=== PATIENT | female | born 1960 | race Caucasian/White ===

== ENCOUNTER 2020-05-21 09:12 | Inpatient (IN) | payer OTHER ==
--- NOTE | 2020-05-21 09:50 | ED ---
General Adult HPI - General Chief complaint: Abdominal Pain Stated complaint: abd pain Time Seen by Provider: 05/21/20 09:15 Source: patient, RN notes reviewed, old records reviewed Mode of arrival: ambulatory Limitations: no limitations - History of Present Illness Initial comments: This is a 59-year-old female who presents to the emergency department stating that yesterday morning she started having some lower abdominal pain mostly on the right and that pain is progress since that time. Patient continues to have lower abdominal pain. Patient denies any nausea vomiting. Patient denies any diarrhea. Patient denies any fever but states she did have chills. Patient states that she has had a cholecystectomy in the past. Patient denies any chest pain difficulty breathing shortness of breath. Patient denies any dysuria hematuria urinary frequency. Patient denies any urinary incontinence or retention. Patient denies any back pain. - Related Data Home Medications Medication Instructions Recorded Confirmed Estradiol 0.5 mg PO DAILY 05/21/20 05/21/20 Levothyroxine Sodium [Synthroid] 25 mcg PO DAILY 05/21/20 05/21/20 Allergies Allergy/AdvReac Type Severity Reaction Status Date / Time No Known Allergies Allergy Verified 05/21/20 10:52 Review of Systems ROS Statement: Those systems with pertinent positive or pertinent negative responses have been documented in the HPI. ROS Other: All systems not noted in ROS Statement are negative. Past Medical History Past Medical History: No Reported History History of Any Multi-Drug Resistant Organisms: None Reported Past Surgical History: Cholecystectomy, Hysterectomy Past Psychological History: No Psychological Hx Reported Smoking Status: Former smoker Past Alcohol Use History: Occasional Past Drug Use History: None Reported General Exam - General Exam Comments Initial Comments: GENERAL: Patient is well-developed and well-nourished. Patient is nontoxic and well- hydrated and is in mild distress. ENT: Neck is soft and supple. No significant lymphadenopathy is noted. Oropharynx is clear. Moist mucous membranes. Neck has full range of motion without eliciting any pain. EYES: The sclera were anicteric and conjunctiva were pink and moist. Extraocular movements were intact and pupils were equal round and reactive to light. Eyelids were unremarkable. PULMONARY: Unlabored respirations. Good breath sounds bilaterally. No audible rales rhonchi or wheezing was noted. CARDIOVASCULAR: There is a regular rate and rhythm without any murmurs gallops or rubs. ABDOMEN: Patient is right lower quadrant abdominal pain with rebound. SKIN: Skin is clear with no lesions or rashes and otherwise unremarkable. NEUROLOGIC: Patient is alert and oriented x3. Cranial nerves II through XII are grossly intact. Motor and sensory are also intact. Normal speech, volume and content. Symmetrical smile. MUSCULOSKELETAL: Normal extremities with adequate strength and full range of motion. LYMPHATICS: No significant lymphadenopathy is noted PSYCHIATRIC: Normal psychiatric evaluation. Limitations: no limitations Course Vital Signs 05/21/20 05/21/20 09:16 10:18 Temperature 98.1 F Pulse Rate 109 H 88 Respiratory 18 18 Rate Blood Pressure 113/79 127/88 O2 Sat by Pulse 99 97 Oximetry Medical Decision Making - Medical Decision Making CT of the abdomen and pelvis shows moderate to severe diverticulitis it's uncomplicated Patient did not feel comfortable going home so I admitted the patient wrote admitting orders. - Lab Data Result diagrams: 05/21/20 09:59 05/21/20 09:59 Lab Results 05/21/20 05/21/20 05/21/20 Range/Units 09:59 09:59 09:59 WBC 13.4 H (3.8-10.6) k/uL RBC 4.75 (3.80-5.40) m/uL Hgb 14.4 (11.4-16.0) gm/dL Hct 42.5 (34.0-46.0) % MCV 89.5 (80.0-100.0) fL MCH 30.4 (25.0-35.0) pg MCHC 34.0 (31.0-37.0) g/dL RDW 12.0 (11.5-15.5) % Plt Count 185 (150-450) k/uL Neutrophils % 82 % Lymphocytes % 10 % Monocytes % 7 % Eosinophils % 1 % Basophils % 0 % Neutrophils # 11.0 H (1.3-7.7) k/uL Lymphocytes # 1.3 (1.0-4.8) k/uL Monocytes # 0.9 (0-1.0) k/uL Eosinophils # 0.1 (0-0.7) k/uL Basophils # 0.1 (0-0.2) k/uL Sodium 138 (137-145) mmol/L Potassium 4.3 (3.5-5.1) mmol/L Chloride 105 (98-107) mmol/L Carbon Dioxide 27 (22-30) mmol/L Anion Gap 6 mmol/L BUN 15 (7-17) mg/dL Creatinine 0.92 (0.52-1.04) mg/dL Est GFR (CKD-EPI)AfAm 80 (>60 ml/min/1.73 sqM) Est GFR (CKD-EPI)NonAf 70 (>60 ml/min/1.73 sqM) Glucose 116 H (74-99) mg/dL Calcium 9.7 (8.4-10.2) mg/dL Total Bilirubin 0.9 (0.2-1.3) mg/dL AST 24 (14-36) U/L ALT 23 (4-34) U/L Alkaline Phosphatase 82 (38-126) U/L Total Protein 7.4 (6.3-8.2) g/dL Albumin 4.5 (3.5-5.0) g/dL Amylase 50 (30-110) U/L Lipase 202 (23-300) U/L Urine Color Light Yellow Urine Appearance Clear (Clear) Urine pH 5.5 (5.0-8.0) Ur Specific [place] 1.009 (1.001-1.035) Urine Protein Negative (Negative) Urine Glucose (UA) Negative (Negative) Urine Ketones Negative (Negative) Urine Blood Trace H (Negative) Urine Nitrite Negative (Negative) Urine Bilirubin Negative (Negative) Urine Urobilinogen <2.0 (<2.0) mg/dL Ur Leukocyte Esterase Negative (Negative) Urine RBC <1 (0-5) /hpf Urine WBC <1 (0-5) /hpf Ur Squamous Epith Cells 1 (0-4) /hpf Urine Bacteria Rare H (None) /hpf Urine Mucus Rare H (None) /hpf Disposition Clinical Impression: Acute diverticulitis Disposition: ADMITTED IP TO THIS HOSP Referrals: Dwayne Tijerina DO [Primary Care Provider] - 1-2 days Time of Disposition: 11:05
[2020-05-21 10:14] LABS: Basophils # (A) 0.1 k/uL (0-0.2); Basophils % (A) 0 %; Eosinophils # (A) 0.1 k/uL (0-0.7); Eosinophils % (A) 1 %; HCT 42.5 % (34.0-46.0); HGB 14.4 gm/dL (11.4-16.0); Lymphocytes # (A) 1.3 k/uL (1.0-4.8); Lymphocytes % (A) 10 %; MCH 30.4 pg (25.0-35.0); MCV 89.5 fL (80.0-100.0); Mean Platelet Volume 7.5; Monocytes # (A) 0.9 k/uL (0-1.0); Monocytes % (A) 7 %; Neutrophils % (A) 82 %; Platelet Count 185 k/uL (150-450); RBC 4.75 m/uL (3.80-5.40); WBC 13.4 k/uL (3.8-10.6)
[2020-05-21 10:18] LABS: Appearance,Urine Clear (Clear); Bacteria,Urine Rare /hpf; Bilirubin,Urine Negative (Negative); Blood,Urine Trace (Negative); Color,Urine Light Yellow; Glucose,Urine (UA) Negative (Negative); Ketones,Urine Negative (Negative); Leukocyte Esterase,Urine Negative (Negative); Mucus,Urine Rare /hpf; Nitrite,Urine Negative (Negative); PH, Urine 5.5 (5.0-8.0); Protein,Urine Negative (Negative); RBC,Urine <1 /hpf (0-5); Specific Gravity,Urine 1.009 (1.001-1.035); Squamous Epithelial Cell,Urine 1 /hpf (0-4); Urobilinogen,Urine <2.0 mg/dL (<2.0); WBC,Urine <1 /hpf (0-5)
[2020-05-21 10:37] LABS: Albumin 4.5 g/dL (3.5-5.0); Calcium 9.7 mg/dL (8.4-10.2); Potassium 4.3 mmol/L (3.5-5.1); Total Bilirubin 0.9 mg/dL (0.2-1.3); Total Protein 7.4 g/dL (6.3-8.2)
[2020-05-21] MEDS ORDERED: HYDROmorphone 0.5 MG/0.5 ML SYRINGE IVP STA (10:47)
--- NOTE | 2020-05-21 10:57 | CT ---
EXAMINATION TYPE: CT abdomen pelvis w con DATE OF EXAM: 05/21/2020 HISTORY: Abd and pelvic pain for 2 days, possible appendicitis. CT DLP: 697.4mGycm Automated Exposure Control for Dose Reduction was Utilized. CONTRAST: CT scan of the abdomen and pelvis is performed without oral but with IV Contrast, patient injected wi th 100 mL of Isovue 300. COMPARISON: None. FINDINGS: LUNG BASES: Dependent atelectasis in both bases. Small to tiny pericardial effusion anteriorly. LIVER/GB: Cholecystectomy clips noted. PANCREAS: No significant abnormality is seen. SPLEEN: No significant abnormality is seen. ADRENALS: No significant abnormality is seen. KIDNEYS: Symmetric cortical medullary uptake and excretion without concerning renal mass or hydroneph rosis seen bilaterally. Bladder within normal limits. BOWEL: Small sized hiatal hernia. Slightly suboptimal evaluation bowel without enteric contrast. No s uspicious small and large bowel dilatation. Slightly low-lying fluid and fecal filled cecum into the right pelvis. Normal-appearing appendix noted from cecum seen best on coronal images. There are diver ticula in the left and sigmoid colon. There is moderate to severe wall thickening centered mid sigmoi d colon left pelvis with irregular mucosal enhancement and moderate to severe ill-defined fluid and f at stranding. Findings consistent with acute diverticulitis. Trace free fluid in pelvis axial image 6 8 is noted. No well-formed fluid collection is seen. No pneumoperitoneum is present. UTERUS/ADNEXA: Uterus surgically absent markedly atrophic LYMPH NODES: No greater than 1cm abdominal or pelvic lymph nodes are appreciated. OSSEOUS STRUCTURES: No significant abnormality is seen. OTHER: No significant additional abnormality is seen. IMPRESSION: A fairly moderate to severe uncomplicated acute diverticulitis centered midsigmoid colon in the left pelvis as detailed above.
[2020-05-21] MEDS ORDERED: AMPICILLIN-SULBACTAM 3 GM in SODIUM CHLORIDE 0.9% 100 ML IVPB STA (11:00)
[2020-05-21] MEDS ORDERED: SODIUM CHLORIDE 0.9% 1,000 ML IV ONE (11:05)
[2020-05-21] MEDS ORDERED: HYDROmorphone 0.5 MG/0.5 ML SYRINGE IVP PRN (11:06)
[2020-05-21] MEDS ORDERED: TEMAZEPAM 15 MG CAP PO PRN (12:22)
[2020-05-21] MEDS: LEVOTHYROXINE 25 MCG TAB PO SCH (13:11)
[2020-05-21] MEDS: HYDROcodone/APAP 5-325MG 1 EACH TAB PO PRN ×2 (13:11→20:55)
[2020-05-21] MEDS: PANTOPRAZOLE 40 MG/10 ML VIAL IVP SCH (13:12)
[2020-05-21] MEDS: HEPARIN SODIUM,PORCINE 5,000 UNIT/ML 1 ML VIAL SQ SCH ×2 (13:14→20:54)
[2020-05-21] MEDS: SODIUM CHLORIDE 0.9% 1,000 ML IV SCH (13:14)
[2020-05-21] MEDS: PIPERACILLIN-TAZOBACTAM 3.375 GM in SODIUM CHLORIDE 0.9% 100 ML IVPB SCH ×2 (13:15→20:55)
--- NOTE | 2020-05-21 14:16 | P.GSCN ---
History of Present Illness Consult date: 05/21/20 History of present illness: CHIEF COMPLAINT: Abdominal pain HISTORY OF PRESENT ILLNESS: This is a 59-year-old female with a known past medical history of diverticulitis, irritable bowel syndrome, cholecystectomy and hysterectomy. She reports her last episode of diverticulitis was in 2014 which required hospitalization. She presents to the emergency room with complaints of lower mid and left lower quadrant abdominal pain. She reports that the pain started yesterday. She reports it as a sharp pain rating is on a scale of 10 out of 10. She reports having regular bowel movements. She denies any nausea or vomiting, fever, chills or sweats. She's been admitted to the hospital for diverticulitis. PAST MEDICAL HISTORY: See list. PAST SURGICAL HISTORY: See list. MEDICATIONS: See list. ALLERGIES: See list. SOCIAL HISTORY: No illicit drug use. REVIEW OF SYSTEMS: CONSTITUTIONAL: Denies fever or chills. HEENT: Denies blurred vision, vision changes, or eye pain. Denies hemoptysis CARDIOVASCULAR: Denies chest pain or pressure. RESPIRATORY: No shortness of breath. GASTROINTESTINAL: See HPI for pertinent findings HEMATOLOGIC: Denies bleeding disorders. GENITOURINARY: Denies any blood in urine or increased urinary frequency. SKIN: Denies pruitis. Denies rash. PHYSICAL EXAM: VITAL SIGNS: Reviewed. Afebrile GENERAL: Well-developed in no acute distress. HEENT: No sclera icterus. Extraocular movements grossly intact. Moist buccal mucosa. Head is atraumatic, normocephalic. No nasal drainage. ABDOMEN: Soft. Mildly distended. Left lower quadrant tenderness and lower mid abdomen tenderness with palpation NEUROLOGIC: Alert and oriented. Cranial nerves II through XII grossly intact. LABORATORY DATA: WBC 13.4 hemoglobin 14.4 platelets 185 LFTs normal lipase 202 IMAGING: CT scan of abdomen and pelvis fairly moderate to severe uncomplicated acute diverticulitis centered mid sigmoid colon in the left pelvis ASSESSMENT: 1. Acute diverticulitis of the sigmoid colon 2. Prior history of diverticulitis 3. Irritable bowel syndrome PLAN: -Keep patient nothing by mouth -Continue IV Zosyn -Continue IV fluids -Continue pain medications as needed -Add simethicone drops for gas pain -Recommend colonoscopy outpatient in a few weeks Thank you for this consultation. Physician Plastic Sewer note has been reviewed by physician. Signing provider agrees with the documented findings, assessment, and plan of care. Past Medical History Past Medical History: No Reported History Additional Past Medical History / Comment(s): diverticulitis 2015 admission jennifer maldonado History of Any Multi-Drug Resistant Organisms: None Reported Past Surgical History: Cholecystectomy, Hysterectomy Past Anesthesia/Blood Transfusion Reactions: No Reported Reaction Past Psychological History: No Psychological Hx Reported Smoking Status: Former smoker Past Alcohol Use History: Occasional Past Drug Use History: None Reported - Past Family History Mother History Unknown: Yes Additional Family Medical History / Comment(s): grandmother but not immediate family members Medications and Allergies Home Medications Medication Instructions Recorded Confirmed Type Estradiol 0.5 mg PO DAILY 05/21/20 05/21/20 History Levothyroxine Sodium [Synthroid] 25 mcg PO DAILY 05/21/20 05/21/20 History Allergies Allergy/AdvReac Type Severity Reaction Status Date / Time No Known Allergies Allergy Verified 05/21/20 10:52 Surgical - Exam Vital Signs Temp Pulse Resp BP Pulse Ox 98.1 F 109 H 18 113/79 99 05/21/20 09:16 05/21/20 09:16 05/21/20 09:16 05/21/20 09:16 05/21/20 09:16 Results - Labs 05/21/20 09:59 05/21/20 09:59 Abnormal Lab Results - Last 24 Hours (Table) 05/21/20 05/21/20 05/21/20 Range/Units 09:59 09:59 09:59 WBC 13.4 H (3.8-10.6) k/uL Neutrophils # 11.0 H (1.3-7.7) k/uL Glucose 116 H (74-99) mg/dL Urine Blood Trace H (Negative) Urine Bacteria Rare H (None) /hpf Urine Mucus Rare H (None) /hpf Diabetes panel 05/21/20 Range/Units 09:59 Sodium 138 (137-145) mmol/L Potassium 4.3 (3.5-5.1) mmol/L Chloride 105 (98-107) mmol/L Carbon Dioxide 27 (22-30) mmol/L BUN 15 (7-17) mg/dL Creatinine 0.92 (0.52-1.04) mg/dL Glucose 116 H (74-99) mg/dL Calcium 9.7 (8.4-10.2) mg/dL AST 24 (14-36) U/L ALT 23 (4-34) U/L Alkaline Phosphatase 82 (38-126) U/L Total Protein 7.4 (6.3-8.2) g/dL Albumin 4.5 (3.5-5.0) g/dL Calcium panel 05/21/20 Range/Units 09:59 Calcium 9.7 (8.4-10.2) mg/dL Albumin 4.5 (3.5-5.0) g/dL Pituitary panel 05/21/20 Range/Units 09:59 Sodium 138 (137-145) mmol/L Potassium 4.3 (3.5-5.1) mmol/L Chloride 105 (98-107) mmol/L Carbon Dioxide 27 (22-30) mmol/L BUN 15 (7-17) mg/dL Creatinine 0.92 (0.52-1.04) mg/dL Glucose 116 H (74-99) mg/dL Calcium 9.7 (8.4-10.2) mg/dL Adrenal panel 05/21/20 Range/Units 09:59 Sodium 138 (137-145) mmol/L Potassium 4.3 (3.5-5.1) mmol/L Chloride 105 (98-107) mmol/L Carbon Dioxide 27 (22-30) mmol/L BUN 15 (7-17) mg/dL Creatinine 0.92 (0.52-1.04) mg/dL Glucose 116 H (74-99) mg/dL Calcium 9.7 (8.4-10.2) mg/dL Total Bilirubin 0.9 (0.2-1.3) mg/dL AST 24 (14-36) U/L ALT 23 (4-34) U/L Alkaline Phosphatase 82 (38-126) U/L Total Protein 7.4 (6.3-8.2) g/dL Albumin 4.5 (3.5-5.0) g/dL
--- NOTE | 2020-05-21 14:41 | HP ---
HISTORY AND PHYSICAL CHIEF COMPLAINT: Abdominal pain. HISTORY OF PRESENT ILLNESS: This is a 59-year-old woman with a past medical history of previous diverticulitis in 2015, admitted to [facility] and cholecystomy history. Has recently moved to the area. The patient was followed by Dr. Tijerina in [facility]. The patient had an episode of abdominal pain which is few months ago. Patient improved significantly. Currently, the patient complaining of abdominal pain which started yesterday which felt in the lower part, mainly on the left and the patient diarrhea during the previous admission but currently there is no nausea, diarrhea, constipation, but pain is severe. Patient came to [facility] and CT scan of the abdomen showed fairly moderate severe uncomplicated acute diverticulitis centered in the mid sigmoid colon. The patient admitted for further evaluation and treatment. Broad-spectrum IV antibiotics initiated. There is no history of fever, rigors. No history of headache, loss of consciousness, seizures at this time. PAST MEDICAL HISTORY: Previous diverticulitis, cholecystectomy, hysterectomy. MEDICATIONS PRIOR TO ADMISSION: Include Synthroid 25 mcg p.o. daily, estradiol 0.5 mg daily. ALLERGIES: None. FAMILY HISTORY: No history of heart disease or strokes in the family. SOCIAL HISTORY: History of smoking. Occasional alcohol intake. REVIEW OF SYSTEMS: ENT: No diminished vision. CARDIOVASCULAR: No angina. RESPIRATION: No cough. GI: As mentioned earlier. : No dysuria. NERVOUS SYSTEM: No numbness or weakness. ALLERGY/IMMUNOLOGY: No asthma, hay fever. MUSCULOSKELETAL: As mentioned earlier. HEMATOLOGY: No history of anemia. ENDOCRINE: Hypothyroidism. CONSTITUTIONAL: As mentioned earlier. DERMATOLOGY: Negative. RHEUMATOLOGY: Negative. PSYCHIATRY: As mentioned earlier. PHYSICAL EXAMINATION: Alert and oriented x3. Pulse 88, blood pressure 127/80, respiration 18, temperature 98.1, pulse ox 97% on room air. HEENT: Conjunctivae normal. NECK: No jugular venous distension. CARDIOVASCULAR SYSTEM: S1, S2, muffled. RESPIRATION: Breath sounds diminished at the bases, no rhonchi, no crackles. ABDOMEN: Soft, mild diffuse distention, mild diffuse tenderness in the lower part of the abdomen. Otherwise, no guarding, no rigidity, no rebound tenderness. Bowel sounds diminished. No ascites. No mass palpable. LEGS: No edema, no swelling. NERVOUS SYSTEM: Higher functions as mentioned earlier. Moves all 4 limbs. No focal motor or sensory deficit. LYMPHATICS: No lymph node enlargement in neck or axillae. SKIN: No ulcer, rash, bleeding. JOINTS: No active deforming arthropathy. LABS: WBC 13.2, hemoglobin 14.4, glucose 116. UA noted. ASSESSMENT: 1. Acute abdominal pain with acute diverticulitis involving the mid sigmoid colon on the left pelvis. 2. History of previous diverticulitis. 3. Increased random blood sugar. 4. Increased WBC. 5. History of cholecystectomy. 6. History of hysterectomy. 7. Remote history of nicotine dependence. RECOMMENDATION: In this 59-year-old woman who presented with multiple complex medical issues, will monitor the patient closely. Continue with the current management and symptomatic treatment. Will initiate broad-spectrum IV antibiotics, symptomatic treatment. DVT prophylaxis. Proton pump inhibitor. Surgical consultation. The prognosis guarded because of multiple complex medical issues. Discussed with the patient and family, understands. Further recommendations to follow. MMODL / IJN: [id number] /
[2020-05-21] MEDS: SIMETHICONE 40 MG/0.6 ML DROPS 2,000 MG/30 ML BOTTLE PO SCH ×2 (14:51→21:15)
[2020-05-21] MEDS: HYDROmorphone 0.5 MG/0.5 ML SYRINGE IVP PRN ×3 (14:54→21:01)
[2020-05-21] MEDS ORDERED: AMPICILLIN-SULBACTAM 3 GM in SODIUM CHLORIDE 0.9% 100 ML IVPB SCH (17:00)
[2020-05-21] MEDS: ALPRAZolam 0.25 MG TAB PO PRN (22:27)
[2020-05-22] MEDS: HYDROcodone/APAP 5-325MG 1 EACH TAB PO PRN ×3 (03:38→15:12)
[2020-05-22] MEDS: HYDROmorphone 0.5 MG/0.5 ML SYRINGE IVP PRN ×5 (03:38→20:29)
[2020-05-22] MEDS: PIPERACILLIN-TAZOBACTAM 3.375 GM in SODIUM CHLORIDE 0.9% 100 ML IVPB SCH ×3 (03:39→20:22)
[2020-05-22] MEDS: SODIUM CHLORIDE 0.9% 1,000 ML IV SCH ×2 (03:39→11:56)
[2020-05-22] MEDS: LEVOTHYROXINE 25 MCG TAB PO SCH (06:49)
[2020-05-22 08:03] LABS: Basophils % (A) 0 %; Eosinophils # (A) 0.1 k/uL (0-0.7); Eosinophils % (A) 1 %; HCT 39.2 % (34.0-46.0); HGB 12.3 gm/dL (11.4-16.0); Lymphocytes # (A) 1.6 k/uL (1.0-4.8); Lymphocytes % (A) 16 %; MCH 29.1 pg (25.0-35.0); MCHC 31.4 g/dL (31.0-37.0); MCV 92.6 fL (80.0-100.0); Mean Platelet Volume 7.8; Monocytes # (A) 0.5 k/uL (0-1.0); Monocytes % (A) 5 %; Neutrophils # (A) 7.5 k/uL (1.3-7.7); Neutrophils % (A) 76 %; Platelet Count 160 k/uL (150-450); RBC 4.23 m/uL (3.80-5.40); RDW 12.1 % (11.5-15.5)
[2020-05-22 08:11] LABS: Calcium 8.3 mg/dL (8.4-10.2); Potassium 3.7 mmol/L (3.5-5.1)
[2020-05-22] MEDS: HEPARIN SODIUM,PORCINE 5,000 UNIT/ML 1 ML VIAL SQ SCH ×2 (08:14→20:23)
[2020-05-22] MEDS: SIMETHICONE 40 MG/0.6 ML DROPS 2,000 MG/30 ML BOTTLE PO SCH ×4 (08:18→21:09)
[2020-05-22] MEDS: PANTOPRAZOLE 40 MG/10 ML VIAL IVP SCH (08:23)
--- NOTE | 2020-05-22 11:44 | P.PN ---
Subjective Progress Note Date: 05/22/20 CHIEF COMPLAINT: Abdominal pain HISTORY OF PRESENT ILLNESS: Patient being followed for acute diverticulitis. Patient still reporting abdominal pain. She rates it a 5 out of 10. She had some nausea this morning with ice chips. She is passing gas. Denies any bowel movement. White count has normalized at 10. She is currently nothing by mouth. She is requiring the Dilaudid and [place] for pain control. PHYSICAL EXAM: VITAL SIGNS: Reviewed. GENERAL: Well-developed in no acute distress. HEENT: No sclera icterus. Extraocular movements grossly intact. Moist buccal mucosa. Head is atraumatic, normocephalic. ABDOMEN: Soft. Mildly distended. Tenderness left lower quadrant and left lower mid abdomen NEUROLOGIC: Alert and oriented. Cranial nerves II through XII grossly intact. ASSESSMENT: 1. Acute diverticulitis of the sigmoid colon 2. Prior history of diverticulitis 3. Irritable bowel syndrome PLAN: -Keep patient nothing by mouth -Continue IV Zosyn -Continue IV fluids -Continue pain medications as needed -Recommend colonoscopy outpatient in a few weeks after acute infection has resolved Physician Chlorobutadiene Scrubber Operator note has been reviewed by physician. Signing provider agrees with the documented findings, assessment, and plan of care. Objective - Vital Signs Vital signs: Vital Signs Temp 97.4 F L 05/22/20 08:06 Pulse 80 05/22/20 08:06 Resp 16 05/22/20 08:06 BP 114/67 05/22/20 08:06 Pulse Ox 95 05/22/20 08:06 Intake & Output 05/21/20 05/22/20 05/22/20 18:59 06:59 18:59 Intake Total 20 Output Total 600 Balance -600 20 Weight 64.6 kg Intake: Oral 20 Output: Urine 600 Other: # Voids 2 2 1 - Labs CBC & Chem 7: 05/22/20 07:45 05/22/20 07:45 Labs: Abnormal Lab Results - Last 24 Hours (Table) 05/22/20 Range/Units 07:45 Glucose 72 L (74-99) mg/dL Calcium 8.3 L (8.4-10.2) mg/dL
--- NOTE | 2020-05-22 15:37 | PN ---
PROGRESS NOTE DATE OF SERVICE: 05/22/2020 This is a 59-year-old woman who was admitted with acute abdominal pain with acute diverticulitis, is being closely monitored. Patient is on IV antibiotics. Patient still has some abdominal distention, but the pain is slightly better. No chest pain, no fever. Surgery is following the patient closely. PHYSICAL EXAMINATION: Alert and oriented x3. Pulse 82, blood pressure 120/60, respirations 16, temperature 97.9, pulse ox 98% on room air. HEENT: Conjunctivae normal. NECK: No jugular venous distension. CARDIOVASCULAR: S1, S2, muffled. RESPIRATION: Breath sounds diminished at the bases. No rhonchi. No crackles. ABDOMEN: Soft, minimal diffuse tenderness, otherwise, no guarding, no rigidity, no rebound tenderness. Bowel sounds diminished. No ascites. No mass palpable. LEGS: No edema, no swelling. NERVOUS SYSTEM: No focal deficits. LABS: WBC is 10, hemoglobin is 12.3, sodium 139, potassium 3.7. ASSESSMENT: 1. Acute abdominal pain with acute severe diverticulitis involving the mid sigmoid colon on the left pelvis. 2. History of previous diverticulitis. 3. Increased random blood sugar. 4. Increased WBC. 5. History of cholecystectomy. 6. History of hysterectomy. 7. Remote history of nicotine dependence. RECOMMENDATION: Recommend to continue current management and continue with symptomatic treatment. Continue with IV antibiotics, symptomatic treatment. Otherwise, patient is currently on n.p.o. diet. Closely follow with Surgery. Guarded prognosis. Further recommendations to follow. MMODL / IJN: [id number] /
[2020-05-22] MEDS: ONDANSETRON 4 MG/2 ML VIAL IVP PRN (21:09)
[2020-05-23] MEDS: PIPERACILLIN-TAZOBACTAM 3.375 GM in SODIUM CHLORIDE 0.9% 100 ML IVPB SCH ×3 (05:04→20:29)
[2020-05-23] MEDS: LEVOTHYROXINE 25 MCG TAB PO SCH (05:53)
[2020-05-23] MEDS: SODIUM CHLORIDE 0.9% 1,000 ML IV SCH (05:53)
[2020-05-23 06:28] LABS: Basophils % (A) 1 %; Eosinophils # (A) 0.1 k/uL (0-0.7); Eosinophils % (A) 2 %; HCT 36.5 % (34.0-46.0); HGB 12.1 gm/dL (11.4-16.0); Lymphocytes # (A) 1.6 k/uL (1.0-4.8); Lymphocytes % (A) 22 %; MCH 30.6 pg (25.0-35.0); MCHC 33.3 g/dL (31.0-37.0); Mean Platelet Volume 8.3; Monocytes # (A) 0.4 k/uL (0-1.0); Monocytes % (A) 5 %; Neutrophils # (A) 5.1 k/uL (1.3-7.7); Neutrophils % (A) 70 %; Platelet Count 160 k/uL (150-450); RBC 3.96 m/uL (3.80-5.40); RDW 11.9 % (11.5-15.5); WBC 7.3 k/uL (3.8-10.6)
[2020-05-23 06:44] LABS: Potassium 3.9 mmol/L (3.5-5.1)
[2020-05-23] MEDS: PANTOPRAZOLE 40 MG/10 ML VIAL IVP SCH (09:02)
[2020-05-23] MEDS: HEPARIN SODIUM,PORCINE 5,000 UNIT/ML 1 ML VIAL SQ SCH ×2 (09:02→21:07)
[2020-05-23] MEDS: SIMETHICONE 40 MG/0.6 ML DROPS 2,000 MG/30 ML BOTTLE PO SCH ×4 (09:03→21:07)
[2020-05-23] MEDS: HYDROcodone/APAP 5-325MG 1 EACH TAB PO PRN ×2 (09:03→16:35)
[2020-05-23] MEDS: ONDANSETRON 4 MG/2 ML VIAL IVP PRN ×2 (09:11→16:35)
[2020-05-23] MEDS: DEXTROSE 5%-0.9% NACL 1,000 ML IV SCH ×2 (09:31→20:21)
--- NOTE | 2020-05-23 12:41 | P.PN ---
Subjective Progress Note Date: 05/23/20 CHIEF COMPLAINT: Abdominal pain HISTORY OF PRESENT ILLNESS: Patient being followed for acute diverticulitis. She had one episode of vomiting last night. No bowel movement. She is passing gas. Her pain is showing improvement. She now rates her pain 4 out of 10. She is currently nothing by mouth and asking for something to drink. Afebrile White count 7.3 PHYSICAL EXAM: VITAL SIGNS: Reviewed. GENERAL: Well-developed in no acute distress. HEENT: No sclera icterus. Extraocular movements grossly intact. Moist buccal mucosa. Head is atraumatic, normocephalic. ABDOMEN: Soft. Mildly distended. Tenderness left lower quadrant and left lower mid abdomen NEUROLOGIC: Alert and oriented. Cranial nerves II through XII grossly intact. ASSESSMENT: 1. Acute diverticulitis of the sigmoid colon 2. Prior history of diverticulitis 3. Irritable bowel syndrome PLAN: -Recommend conservative treatment -Start clear liquid diet -Continue IV Zosyn -Continue IV fluids -Continue pain medications as needed -Recommend colonoscopy outpatient in a few weeks after acute infection has resolved Physician Circular Ripsaw Operator note has been reviewed by physician. Signing provider agrees with the documented findings, assessment, and plan of care. Objective - Vital Signs Vital signs: Vital Signs Temp 98.2 F 05/23/20 08:15 Pulse 82 05/23/20 08:15 Resp 18 05/23/20 08:15 BP 118/78 05/23/20 08:15 Pulse Ox 96 05/23/20 08:15 Intake & Output 05/22/20 05/23/20 05/23/20 18:59 06:59 18:59 Intake Total 30 1350 Output Total 40 Balance 30 1310 Intake: Intake, IV Titration 850 Amount Piperacillin-Tazobactam 3 100 .375 gm In Sodium Chloride 0.9% 100 ml @ 25 mls/hr IVPB Q8H [facility] Rx#: [id number] Sodium Chloride 0.9% 1, 750 000 ml @ 75 mls/hr IV . [id number] [facility] Rx#:[id number] Oral 30 500 Output: Emesis 40 Other: # Voids 1 2 - Labs CBC & Chem 7: 05/23/20 06:10 05/23/20 06:10 Labs: Abnormal Lab Results - Last 24 Hours (Table) 05/23/20 Range/Units 06:10 Chloride 109 H (98-107) mmol/L Glucose 63 L (74-99) mg/dL Calcium 8.0 L (8.4-10.2) mg/dL Microbiology - Last 24 Hours (Table) 05/21/20 11:28 Blood Culture - Preliminary Blood No Growth after 24 hours
[2020-05-23 20:29] VITALS: RESP 16
[2020-05-24] MEDS: ALPRAZolam 0.25 MG TAB PO PRN (00:23)
[2020-05-24] MEDS: ONDANSETRON 4 MG/2 ML VIAL IVP PRN (04:02)
[2020-05-24] MEDS: HYDROcodone/APAP 5-325MG 1 EACH TAB PO PRN (04:03)
[2020-05-24] MEDS: PIPERACILLIN-TAZOBACTAM 3.375 GM in SODIUM CHLORIDE 0.9% 100 ML IVPB SCH ×3 (05:12→21:32)
[2020-05-24] MEDS: DEXTROSE 5%-0.9% NACL 1,000 ML IV SCH ×2 (05:12→14:33)
[2020-05-24] MEDS: LEVOTHYROXINE 25 MCG TAB PO SCH (06:27)
[2020-05-24 07:27] LABS: Basophils % (A) 1 %; Eosinophils # (A) 0.2 k/uL (0-0.7); Eosinophils % (A) 3 %; HCT 34.3 % (34.0-46.0); HGB 11.1 gm/dL (11.4-16.0); Lymphocytes # (A) 1.8 k/uL (1.0-4.8); Lymphocytes % (A) 34 %; MCH 29.5 pg (25.0-35.0); MCHC 32.4 g/dL (31.0-37.0); MCV 91.1 fL (80.0-100.0); Mean Platelet Volume 7.7; Monocytes # (A) 0.4 k/uL (0-1.0); Monocytes % (A) 8 %; Neutrophils # (A) 2.7 k/uL (1.3-7.7); Neutrophils % (A) 52 %; Platelet Count 180 k/uL (150-450); RBC 3.77 m/uL (3.80-5.40); WBC 5.2 k/uL (3.8-10.6)
[2020-05-24 07:35] LABS: Calcium 8.1 mg/dL (8.4-10.2); Potassium 3.9 mmol/L (3.5-5.1)
[2020-05-24] MEDS: SIMETHICONE 40 MG/0.6 ML DROPS 2,000 MG/30 ML BOTTLE PO SCH ×4 (09:20→21:33)
[2020-05-24] MEDS: HEPARIN SODIUM,PORCINE 5,000 UNIT/ML 1 ML VIAL SQ SCH ×2 (09:22→21:33)
[2020-05-24] MEDS: PANTOPRAZOLE 40 MG/10 ML VIAL IVP SCH (09:22)
--- NOTE | 2020-05-24 13:07 | P.PN ---
Subjective Progress Note Date: 05/24/20 She is tolerating full liquids. She reports intolerance to high sugar foods and dairy. "I am taking this seriously and ordered a cookbook!" She is researching diet for diverticulitis ABDOMEN: Nontender to palpation. No peritonitis STUDIES: CT abdomen and pelvis reviewed with focal sigmoid diverticulitis without free air. PLAN: 1. Low fiber, lactose free, and low sugar diet 2. Dietitian consultation Objective - Vital Signs Vital signs: Vital Signs Temp 97.8 F 05/24/20 08:25 Pulse 75 05/24/20 08:25 Resp 16 05/24/20 08:25 BP 118/79 05/24/20 08:25 Pulse Ox 96 05/24/20 08:25 Intake & Output 05/23/20 05/24/20 05/24/20 18:59 06:59 18:59 Intake Total 2850 Balance 2850 Intake: Intake, IV Titration 2200 Amount Dextrose 5%-0.9% NaCl 1, 2000 000 ml @ 100 mls/hr IV . Q10H [facility] Rx#:[id number] Piperacillin-Tazobactam 3 200 .375 gm In Sodium Chloride 0.9% 100 ml @ 25 mls/hr IVPB Q8H [facility] Rx#: [id number] Oral 650 Other: Voiding Method Toilet Toilet # Voids 4 2 1 # Bowel Movements 1 1 - Labs CBC & Chem 7: 05/24/20 06:53 05/24/20 06:53 Labs: Abnormal Lab Results - Last 24 Hours (Table) 05/24/20 05/24/20 Range/Units 06:53 06:53 RBC 3.77 L (3.80-5.40) m/uL Hgb 11.1 L (11.4-16.0) gm/dL Chloride 109 H (98-107) mmol/L BUN 4 L (7-17) mg/dL Glucose 113 H (74-99) mg/dL Calcium 8.1 L (8.4-10.2) mg/dL Microbiology - Last 24 Hours (Table) 05/21/20 11:28 Blood Culture - Preliminary Blood No Growth after 48 hours
[2020-05-24 13:20] VITALS: BMI 22.9
--- NOTE | 2020-05-24 18:22 | P.PN ---
Subjective Progress Note Date: 05/23/20 Principal diagnosis: Acute sigmoid diverticulitis acute diverticulitis. She had one episode of vomiting last night. No bowel movement. She is passing gas. Her pain is showing improvement. She now rates her pain 4 out of 10. She is currently nothing by mouth and asking for s omething to drink. Afebrile White count 7.3 Objective - Vital Signs Vital signs: Vital Signs Temp 97.7 F 05/23/20 12:15 Pulse 72 05/23/20 12:15 Resp 18 05/23/20 12:15 BP 115/73 05/23/20 12:15 Pulse Ox 95 05/23/20 12:15 Intake & Output 05/22/20 05/23/20 05/23/20 18:59 06:59 18:59 Intake Total 30 1350 Output Total 40 Balance 30 1310 Intake: Intake, IV Titration 850 Amount Piperacillin-Tazobactam 3 100 .375 gm In Sodium Chloride 0.9% 100 ml @ 25 mls/hr IVPB Q8H [facility] Rx#: [id number] Sodium Chloride 0.9% 1, 750 000 ml @ 75 mls/hr IV . [id number] [facility] Rx#:[id number] Oral 30 500 Output: Emesis 40 Other: # Voids 1 2 2 - Exam PHYSICAL EXAMINATION: GENERAL: The patient is alert and oriented x3, not in any acute distress. Well developed, well nourished. HEENT: Pupils are round and equally reacting to light. EOMI. No scleral icterus. No conjunctival pallor. Normocephalic, atraumatic. No pharyngeal erythema. No thyromegaly. CARDIOVASCULAR: S1 and S2 present. No murmurs, rubs, or gallops. PULMONARY: Chest is clear to auscultation, no wheezing or crackles. ABDOMEN: Soft, nontender, nondistended, normoactive bowel sounds. No palpable organomegaly. MUSCULOSKELETAL: No joint swelling or deformity. EXTREMITIES: No cyanosis, clubbing, or pedal edema. NEUROLOGICAL: Gross neurological examination did not reveal any focal deficits. SKIN: No rashes. - Labs CBC & Chem 7: 05/24/20 06:53 05/24/20 06:53 Labs: Abnormal Lab Results - Last 24 Hours (Table) 05/23/20 Range/Units 06:10 Chloride 109 H (98-107) mmol/L Glucose 63 L (74-99) mg/dL Calcium 8.0 L (8.4-10.2) mg/dL Microbiology - Last 24 Hours (Table) 05/21/20 11:28 Blood Culture - Preliminary Blood No Growth after 48 hours Assessment and Plan Assessment: 1. Acute diverticulitis of the sigmoid colon 2. Prior history of diverticulitis 3. Irritable bowel syndrome PLAN: -Recommend conservative treatment -Start clear liquid diet -Continue IV Zosyn -Continue IV fluids -Continue pain medications as needed -Recommend colonoscopy outpatient in a few weeks after acute infection has resolved
--- NOTE | 2020-05-24 18:23 | P.PN ---
Subjective Progress Note Date: 05/24/20 Principal diagnosis: Acute sigmoid diverticulitis acute diverticulitis. She had one episode of vomiting last night. No bowel movement. She is passing gas. Her pain is showing improvement. She now rates her pain 4 out of 10. She is currently nothing by mouth and asking for s omething to drink. Afebrile White count 7.3 05/24/2020 Patient is seen and evaluated resting comfortably in bed; has been advanced to full liquids and reports tolerating them fine Vital signs remained stable with a temperature of 97.8, pulse 75, respirations 16, and blood pressure 118/79 Lab review shows a white blood count of 5.2, hemoglobin of 11.1, sodium of 142 with potassium of 3.9 Patient reports intolerance to high sugar diet; surgery is following and recommending low fiber lactose free and low sugar diet; dietary consult has been placed Objective - Vital Signs Vital signs: Vital Signs Temp 97.7 F 05/24/20 12:04 Pulse 67 05/24/20 12:04 Resp 16 05/24/20 12:04 BP 121/80 05/24/20 12:04 Pulse Ox 95 05/24/20 12:04 Intake & Output 05/23/20 05/24/20 05/24/20 18:59 06:59 18:59 Intake Total 2850 Balance 2850 Weight 64.6 kg Intake: Intake, IV Titration 2200 Amount Dextrose 5%-0.9% NaCl 1, 2000 000 ml @ 100 mls/hr IV . Q10H [facility] Rx#:[id number] Piperacillin-Tazobactam 3 200 .375 gm In Sodium Chloride 0.9% 100 ml @ 25 mls/hr IVPB Q8H [facility] Rx#: [id number] Oral 650 Other: Voiding Method Toilet Toilet # Voids 4 2 1 # Bowel Movements 1 1 - Labs CBC & Chem 7: 05/24/20 06:53 05/24/20 06:53 Labs: Abnormal Lab Results - Last 24 Hours (Table) 05/24/20 05/24/20 Range/Units 06:53 06:53 RBC 3.77 L (3.80-5.40) m/uL Hgb 11.1 L (11.4-16.0) gm/dL Chloride 109 H (98-107) mmol/L BUN 4 L (7-17) mg/dL Glucose 113 H (74-99) mg/dL Calcium 8.1 L (8.4-10.2) mg/dL Microbiology - Last 24 Hours (Table) 05/21/20 11:28 Blood Culture - Preliminary Blood No Growth after 72 hours
[2020-05-25] MEDS: DEXTROSE 5%-0.9% NACL 1,000 ML IV SCH (01:29)
[2020-05-25] MEDS: PIPERACILLIN-TAZOBACTAM 3.375 GM in SODIUM CHLORIDE 0.9% 100 ML IVPB SCH ×2 (04:48→13:48)
[2020-05-25] MEDS: LEVOTHYROXINE 25 MCG TAB PO SCH (06:38)
[2020-05-25] MEDS: HEPARIN SODIUM,PORCINE 5,000 UNIT/ML 1 ML VIAL SQ SCH (09:14)
[2020-05-25] MEDS: SIMETHICONE 40 MG/0.6 ML DROPS 2,000 MG/30 ML BOTTLE PO SCH ×2 (09:14→13:49)
[2020-05-25] MEDS: PANTOPRAZOLE 40 MG/10 ML VIAL IVP SCH (09:14)
[2020-05-25 11:08] VITALS: BP 118/78; PULSE 66; TEMP 97.7
--- NOTE | 2020-05-25 14:02 | P.DS ---
Providers Date of admission: 05/21/20 11:06 Expected date of discharge: 05/25/20 Attending physician: Eula Miller Consults: 05/21/20 11:59 Consult Physician Routine Consulting Provider: Hemant Cordon Consult Reason/Comments: diverticulitis Do you want consulting provider notified?: Yes Primary care physician: Dwayne Tijerina - Discharge Diagnosis(es) (1) Acute diverticulitis Current Visit: Yes Status: Acute Hospital Course: Patient came in with acute diverticulitis. She was placed on antibiotics. Her diet was advanced from clear liquid to low fiber diet which she tolerated. Dietary education for diverticulitis was reinforced. Antibiotics for 7 to 10 days was prescribed with outpatient follow-up with her PCP and surgeon. Patient Condition at Discharge: Good Plan - Discharge Summary Discharge Rx Participant: No New Discharge Prescriptions: New Ciprofloxacin HCl [Cipro] 500 mg PO Q12HR #14 tablet metroNIDAZOLE [Flagyl] 500 mg PO TID #30 tab Ondansetron Odt [Zofran ODT] 4 mg PO Q8HR PRN #5 tab PRN Reason: Nausea Continue Levothyroxine Sodium [Synthroid] 25 mcg PO DAILY Estradiol 0.5 mg PO DAILY Discharge Medication List Estradiol 0.5 mg PO DAILY 05/21/20 [History] Levothyroxine Sodium [Synthroid] 25 mcg PO DAILY 05/21/20 [History] Ciprofloxacin HCl [Cipro] 500 mg PO Q12HR #14 tablet 05/25/20 [Rx] Ondansetron Odt [Zofran ODT] 4 mg PO Q8HR PRN #5 tab 05/25/20 [Rx] metroNIDAZOLE [Flagyl] 500 mg PO TID #30 tab 05/25/20 [Rx] Follow up Appointment(s)/Referral(s): Dwayne Tijerina DO [Primary Care Provider] - 1-2 days Hemant Cordon MD [STAFF PHYSICIAN] - 1 Week Patient Instructions/Handouts: Diverticulitis (DC), Diverticulitis Diet (DC) Activity/Diet/Wound Care/Special Instructions: Low fiber diet for 1 week until 06/01/20. Discharge Disposition: HOME SELF-CARE
== END 2020-05-25 14:33 | disposition home or self-care (01) | DRG 392 ==
LOC: EC 09:12 → 6PED 11:06
PROVIDERS: ADMIT Hospitalist; ATTEND Hospitalist
DX: K57.32 Diverticulitis of large intestine without perforation or abscess without bleeding (principal); E03.9 Hypothyroidism, unspecified; K58.9 Irritable bowel syndrome, unspecified; Z90.49 Acquired absence of other specified parts of digestive tract; Z79.890 Hormone replacement therapy; Z87.891 Personal history of nicotine dependence; Z90.710 Acquired absence of both cervix and uterus
CPT/HCPCS: 36415; 74177; 80048; 80053; 81001; 82150; 83690; 85025; 87040; 96361; 96365; 99285

== ENCOUNTER → 2020-06-23 | Outpatient (CLI) | payer OTHER ==
[2020-06-23 12:41] LABS: MCH 30.4 pg (25.0-35.0); MCHC 32.2 g/dL (31.0-37.0); MCV 94.2 fL (80.0-100.0); Platelet Count 147 k/uL (150-450); RBC 4.67 m/uL (3.80-5.40); RDW 12.4 % (11.5-15.5)
[2020-06-23 12:48] LABS: HGB 14.2 gm/dL (11.4-16.0)
== END | disposition home or self-care (01) ==
LOC: LABPAT 12:10
PROVIDERS: ATTEND Surgery
DX: Z01.818 Encounter for other preprocedural examination (principal); K57.32 Diverticulitis of large intestine without perforation or abscess without bleeding
CPT/HCPCS: 80051; 85027

== ENCOUNTER 2020-06-26 07:01 | Day surgery (SDC) | payer OTHER ==
[2020-06-24 11:22] VITALS: BMI 21.7
[~2020-06-26 07:01] MED LIST: LACTATED RINGERS 1,000 ML IV SCH
[2020-06-26 07:54] VITALS: TEMP 97.5
[2020-06-26] MEDS ORDERED: PROPOFOL 10 MG/ML 20 ML VIAL IV ONE (08:44)
[2020-06-26] MEDS ORDERED: LIDOCAINE 1% INJ 10MG/ML (20 ML MDV) ONE (08:44)
--- NOTE | 2020-06-26 08:56 | P.GSHP ---
History of Present Illness H&P Date: 06/26/20 Chief Complaint: Diverticulitis Is a 59-year-old female presents today for colonoscopy EGD. She's had issues with diverticulitis and GERD. Her recent hospital for diverticulitis approximately one month ago. Past Medical History Past Medical History: GERD/Reflux, Thyroid Disorder Additional Past Medical History / Comment(s): diverticulitis, hiatal hernia, IBS, colitis History of Any Multi-Drug Resistant Organisms: None Reported Past Surgical History: Cholecystectomy, Hysterectomy, Tonsillectomy Additional Past Surgical History / Comment(s): andrae bunionectomy, hammertoe surgery rt foot, Past Anesthesia/Blood Transfusion Reactions: No Reported Reaction Smoking Status: Former smoker - Past Family History Mother History Unknown: Yes Additional Family Medical History / Comment(s): grandmother but not immediate family members Father Family Medical History: Cancer Medications and Allergies Home Medications Medication Instructions Recorded Confirmed Type Estradiol 0.25 mg PO DAILY 05/21/20 06/26/20 History Levothyroxine Sodium [Synthroid] 25 mcg PO DAILY 05/21/20 06/24/20 History Hyoscyamine Sulfate [Levsin] 0.125 mg PO DAILY PRN 06/24/20 06/26/20 History L.acidoph,Paracasei, B.lactis 1 each PO DAILY 06/24/20 06/26/20 History [Probiotic] Allergies Allergy/AdvReac Type Severity Reaction Status Date / Time No Known Allergies Allergy Verified 06/26/20 07:50 Surgical - Exam Vital Signs Temp Pulse Resp BP Pulse Ox 97.5 F L 76 16 122/73 98 06/26/20 07:53 06/26/20 07:53 06/26/20 07:53 06/26/20 07:53 06/26/20 07:53 - General well developed, well nourished, no distress - Eyes PERRL - ENT normal pinna - Neck no masses - Respiratory normal expansion - Cardiovascular Rhythm: regular - Abdomen Abdomen: soft, non tender Assessment and Plan Assessment: Diverticula is. We'll perform colonoscopy. GERD we'll perform EGD.
--- NOTE | 2020-06-26 09:10 | P.OP ---
Date of Procedure: 06/26/20 Preoperative Diagnosis: Diverticulitis GERD Postoperative Diagnosis: Diverticulosis Antral gastritis Small sliding hiatal hernia Procedure(s) Performed: Colonoscopy EGD Anesthesia: MAC Surgeon: Hemant Cordon Pathology: none sent Condition: stable Disposition: PACU Description of Procedure: The patient's placed on the endoscopy table in the lateral position. She received IV sedation. Digital rectal exam was performed which revealed no abnormalities. Flexible colonoscope was then placed patient anus and passed throughout the entire colon. The ileocecal valve was visualized. Cecum, ascending and transverse colon appeared normal. In the descending; there is extensive diverticular changes. Scope was then brought back the rectum and the scope was then removed from the patient. Next the gastro-placed oropharynx and passed in the esophagus and stomach. Scope then placed through the pylorus. The first and second portion of the duodenum appeared normal. Scope summer back the antrum this. Mildly inflamed. A biopsies was performed. The scope was unretroflexed and remainder stomach appeared normal. There was a small sliding hiatal hernia. The GE junction was at 38 cm the distal esophagus appeared minimally inflamed a biopsies performed. The proximal esophagus appeared normal. Scope was withdrawn from patient.
[2020-06-26 09:25] VITALS: RESP 16
[2020-06-26] MEDS ORDERED: ONDANSETRON 4 MG/2 ML VIAL IVP ONE (09:30)
[2020-06-26 09:42] VITALS: BP 138/86; PULSE 58
== END 2020-06-26 09:40 | disposition home or self-care (01) ==
LOC: ORWHC2ENDO 07:01
PROVIDERS: ATTEND Surgery
DX: K21.9 Gastro-esophageal reflux disease without esophagitis (principal); K29.50 Unspecified chronic gastritis without bleeding; K57.30 Diverticulosis of large intestine without perforation or abscess without bleeding; K44.9 Diaphragmatic hernia without obstruction or gangrene; E07.9 Disorder of thyroid, unspecified; K58.9 Irritable bowel syndrome, unspecified; K52.9 Noninfective gastroenteritis and colitis, unspecified; Z90.49 Acquired absence of other specified parts of digestive tract; Z90.710 Acquired absence of both cervix and uterus; Z98.890 Other specified postprocedural states; Z87.891 Personal history of nicotine dependence; Z79.890 Hormone replacement therapy; Z79.899 Other long term (current) drug therapy
CPT/HCPCS: 88305; 45378; 43239; J2405; J2001; J2704

== ENCOUNTER 2020-06-27 05:59 | Inpatient (IN) | payer OTHER ==
[~2020-06-27 05:59] MED LIST changes: +ACETAMINOPHEN TAB 500 MG TAB PO ONE; +DEXAMETHASONE SOD PHOSPHATE 10 MG/ML 1 ML VIAL IV ONE; -LACTATED RINGERS 1,000 ML IV SCH; +LIDOCAINE 1% (10MG/ML) FOR IV START INTRADERMA PRN; +MIDAZOLAM 2 MG/2 ML VIAL IV PRN; +ONDANSETRON 4 MG/2 ML VIAL IVP ONE; +ONDANSETRON 4 MG/2 ML VIAL ONE; +fentaNYL (PF) 50 MCG/ML 2 ML AMP IVP PRN; +metroNIDAZOLE-NS PMX 500 MG in SALINE 1 100ML.BAG IVPB ONE
[2020-06-27] MEDS ORDERED: HEPARIN SODIUM,PORCINE 5,000 UNIT/ML 1 ML VIAL SQ ONE (06:00)
[2020-06-27] MEDS: LACTATED RINGERS 1,000 ML IV SCH (06:43)
[2020-06-27] MEDS ORDERED: SCOPOLAMINE 1.5MG/72HR PATCH TRANSDERM ONE (06:44)
[2020-06-27] MEDS ORDERED: fentaNYL (PF) 50 MCG/ML 2 ML AMP IV ONE (07:06)
[2020-06-27] MEDS ORDERED: NEOSTIGMINE 1 MG/ML 10 ML VIAL ONE (07:51)
[2020-06-27] MEDS ORDERED: MIDAZOLAM 2 MG/2 ML VIAL ONE (07:51)
[2020-06-27] MEDS ORDERED: GLYCOPYRROLATE 0.2 MG/ML 2 ML VIAL ONE (07:51)
[2020-06-27] MEDS ORDERED: LIDOCAINE 1% INJ 10MG/ML (20 ML MDV) ONE (07:51)
[2020-06-27] MEDS ORDERED: fentaNYL (PF) 50 MCG/ML 2 ML AMP ONE (07:51)
[2020-06-27] MEDS ORDERED: PROPOFOL 10 MG/ML 20 ML VIAL IV ONE (07:51)
[2020-06-27] MEDS ORDERED: PHENYLEPHRINE-0.9% NACL SYG 1 MG/10 ML SYRINGE ONE (07:51)
[2020-06-27] MEDS ORDERED: ROCURONIUM 10 MG/ML (10 ML VIAL) IV ONE (07:51)
[2020-06-27] MEDS ORDERED: SUCCINYLCHOLINE CHLORIDE 100 MG/5 ML SYR IV ONE (07:51)
--- NOTE | 2020-06-27 07:53 | P.GSHP ---
History of Present Illness H&P Date: 06/27/20 Chief Complaint: Diverticulitis This a 59-year-old female who presents today for sigmoid resection, low anterior resection. Patient has had a previous history of diverticula is. Patient aware the risks of surgery including colostomy, wound infection and bleeding. Past Medical History Past Medical History: GERD/Reflux, Thyroid Disorder Additional Past Medical History / Comment(s): diverticulitis, hiatal hernia, IBS, colitis History of Any Multi-Drug Resistant Organisms: None Reported Past Surgical History: Cholecystectomy, Hysterectomy, Tonsillectomy Additional Past Surgical History / Comment(s): andrae bunionectomy, hammertoe surgery rt foot, Past Anesthesia/Blood Transfusion Reactions: No Reported Reaction Smoking Status: Former smoker - Past Family History Mother History Unknown: Yes Additional Family Medical History / Comment(s): grandmother but not immediate family members Father Family Medical History: Cancer Medications and Allergies Home Medications Medication Instructions Recorded Confirmed Type Estradiol 0.25 mg PO DAILY 05/21/20 06/27/20 History Levothyroxine Sodium [Synthroid] 25 mcg PO DAILY 05/21/20 06/27/20 History Hyoscyamine Sulfate [Levsin] 0.125 mg PO DAILY PRN 06/24/20 06/27/20 History L.acidoph,Paracasei, B.lactis 1 each PO DAILY 06/24/20 06/27/20 History [Probiotic] Allergies Allergy/AdvReac Type Severity Reaction Status Date / Time No Known Allergies Allergy Verified 06/27/20 06:24 Surgical - Exam Vital Signs Temp Pulse Resp BP Pulse Ox 97 F L 74 16 111/74 98 06/27/20 06:25 06/27/20 06:25 06/27/20 06:25 06/27/20 06:25 06/27/20 06:25 - General well developed, well nourished - Eyes PERRL - ENT normal pinna - Neck no masses - Respiratory normal expansion - Cardiovascular Rhythm: regular - Abdomen Abdomen: soft, non tender Assessment and Plan Assessment: History of chronic diverticulitis. We'll perform a low anterior resection.
[2020-06-27] MEDS ORDERED: NALOXONE 0.4 MG/ML 1 ML VIAL IV PRN (08:07)
[2020-06-27] MEDS ORDERED: LACTATED RINGERS 1,000 ML IV ONE (08:39)
[2020-06-27] MEDS ORDERED: BENZOCAINE/MENTHOL LOZENG 1 EACH LOZENGE MUCOUS MEM PRN (09:07)
--- NOTE | 2020-06-27 09:07 | P.OP ---
Date of Procedure: 06/27/20 Preoperative Diagnosis: Diverticulitis Postoperative Diagnosis: Diverticulitis Procedure(s) Performed: Low anterior resection Anesthesia: XOCHILT Surgeon: Hemant Cordon Estimated Blood Loss (ml): 20 Pathology: other (Sigmoid colon) Condition: stable Disposition: PACU Description of Procedure: Patient's placed on the operating table in the supine position. She received general anesthesia. She was then placed in dorsal 5 position. Her abdomen was prepped and draped in sterile fashion. The area was entered through a low midline incision. The Bookwalter tract placed a wound. Retractors placed in the wound. And then the abdomen explored. There was obvious diverticulitis of the sigmoid colon. The; was mobilized by dividing lateral attachments with cautery. The left colon mobilized by dividing the white line of Toldt. This point a suitable spot for the transection was chosen and then a enterotomy is made distally this and then the anvil for the 25 mm EEA stapler is placed into the colon. The colon was then transected with a GI stapler. And then the anvil is brought through the staple line. The enterotomy is closed with 3-0 GI silk suture. The mesentery the bowel was then divided using the Enseal device. The rectum was then transected with the contour stapler. The therapist's assistant then placed the EEA stapler patient's anus and then the spike was returned through the anterior rectal wall. The anvil was connected to the stapler. The stapler is then closed and fired and then withdrawn. 2 intact tissue rings were withdrawn. The anastomosis was then checked under air insufflation via a rigid sigmoidoscope and there is no evidence of any extravasation of air. The abdomen was irrigated is no bleeding seen. The fascia was closed with number once traffic suture. Skin was closed yudi. Patient top she will was sent to recovery room in stable condition.
[2020-06-27] MEDS: ROPIVACAINE 250 MG, fentaNYL (PF) 625 MCG in SODIUM CHLORIDE 0.9% 188 ML EPIDURAL PRN (09:11)
[2020-06-27] MEDS ORDERED: ONDANSETRON 4 MG/2 ML VIAL IVP ONE (09:21)
[2020-06-27] MEDS ORDERED: HYDROmorphone 0.5 MG/0.5 ML SYRINGE IVP ONE (09:28)
[2020-06-27] MEDS ORDERED: D5-0.45% NACL WITH KCL 20MEQ/L 1,000 ML IV SCH (10:00)
[2020-06-27] MEDS ORDERED: ALBUMIN HUMAN 5% (12.5gm) 250 ML BOTTLE IVPB ONE (11:03)
[2020-06-27] MEDS: HEPARIN SODIUM,PORCINE 5,000 UNIT/ML 1 ML VIAL SQ SCH (15:47)
[2020-06-27] MEDS: D5-0.45% NACL WITH KCL 20MEQ/L 1,000 ML IV SCH (15:47)
--- NOTE | 2020-06-27 16:18 | P.CONS ---
History of Present Illness - Reason for Consult preoperative combination management. - History of Present Illness 72-year-old pleasant female was admitted for probable anterior resection of the sigmoid colon for previous diverticulitis. Patient has anastomosis of the colon and to and. Patient presently doesn't have a colostomy. Patient is clinically doing well denied any fever chills dysuria patient does have bowel sounds doesn't have a Nickerson catheter Review of Systems REVIEW OF SYSTEMS: CONSTITUTIONAL: No fever, no malaise, no fatigue. HEENT: No recent visual problems or hearing problems. Denied any sore throat. CARDIOVASCULAR: No chest pain, orthopnea, PND, no palpitations, no syncope. PULMONARY: No shortness of breath, no cough, no hemoptysis. GASTROINTESTINAL: No diarrhea, no nausea, no vomiting, no abdominal pain. NEUROLOGICAL: No headaches, no weakness, no numbness. HEMATOLOGICAL: Denies any bleeding or petechiae. GENITOURINARY: Denies any burning micturition, frequency, or urgency. MUSCULOSKELETAL/RHEUMATOLOGICAL: Denies any joint pain, swelling, or any muscle pain. ENDOCRINE: Denies any polyuria or polydipsia. The rest of the 14-point review of systems is negative. Past Medical History Past Medical History: GERD/Reflux, Thyroid Disorder Additional Past Medical History / Comment(s): diverticulitis, hiatal hernia, IBS, colitis History of Any Multi-Drug Resistant Organisms: None Reported Past Surgical History: Cholecystectomy, Hysterectomy, Tonsillectomy Additional Past Surgical History / Comment(s): andrae bunionectomy, hammertoe surgery rt foot, Past Anesthesia/Blood Transfusion Reactions: No Reported Reaction Past Psychological History: No Psychological Hx Reported Smoking Status: Former smoker Past Alcohol Use History: Occasional Additional Past Alcohol Use History / Comment(s): quit smoking 2014, smoked for 7 yrs Past Drug Use History: None Reported - Past Family History Mother History Unknown: Yes Additional Family Medical History / Comment(s): grandmother but not immediate family members Father Family Medical History: Cancer Medications and Allergies Home Medications Medication Instructions Recorded Confirmed Type Estradiol 0.25 mg PO DAILY 05/21/20 06/27/20 History Levothyroxine Sodium [Synthroid] 25 mcg PO DAILY 05/21/20 06/27/20 History Hyoscyamine Sulfate [Levsin] 0.125 mg PO DAILY PRN 06/24/20 06/27/20 History L.acidoph,Paracasei, B.lactis 1 each PO DAILY 06/24/20 06/27/20 History [Probiotic] Allergies Allergy/AdvReac Type Severity Reaction Status Date / Time No Known Allergies Allergy Verified 06/27/20 06:24 Physical Exam Vitals: Vital Signs Temp Pulse Resp BP Pulse Ox 06/27/20 14:38 97.7 F 69 16 102/67 99 06/27/20 13:50 16 06/27/20 13:27 97.7 F 88 16 102/68 92 L 06/27/20 13:20 68 16 92/56 100 06/27/20 12:30 69 16 90/55 100 06/27/20 12:00 72 16 88/57 100 06/27/20 11:28 65 16 86/54 100 06/27/20 11:04 65 16 86/55 99 06/27/20 10:30 68 16 83/51 99 06/27/20 10:15 59 L 16 79/53 99 06/27/20 10:00 58 L 16 81/53 97 06/27/20 09:45 56 L 16 85/54 99 06/27/20 09:30 61 16 101/51 99 06/27/20 09:15 72 16 106/55 99 06/27/20 09:06 97 F L 78 16 108/65 97 06/27/20 07:20 74 16 88/58 95 06/27/20 07:10 83 16 93/61 96 06/27/20 07:00 81 16 116/83 99 06/27/20 06:25 97 F L 74 16 111/74 98 Intake and Output 06/27/20 06/27/20 06/27/20 06:59 14:59 22:59 Intake Total 500 2990 Output Total 250 Balance 500 2740 Intake: IV 500 2990 Output: Urine 200 Estimated Blood Loss 50 Other: Voiding Method Indwelling Catheter Weight 60.781 kg 60.781 kg PHYSICAL EXAMINATION: GENERAL: The patient is alert and oriented x3, not in any acute distress. Well developed, well nourished. HEENT: Pupils are round and equally reacting to light. EOMI. No scleral icterus. No conjunctival pallor. Normocephalic, atraumatic. No pharyngeal erythema. No thyromegaly. CARDIOVASCULAR: S1 and S2 present. No murmurs, rubs, or gallops. PULMONARY: Chest is clear to auscultation, no wheezing or crackles. ABDOMEN: Soft, nontender, nondistended, normoactive bowel sounds. No palpable organomegaly. MUSCULOSKELETAL: No joint swelling or deformity. EXTREMITIES: No cyanosis, clubbing, or pedal edema. NEUROLOGICAL: Gross neurological examination did not reveal any focal deficits. SKIN: No rashes. Assessment and Plan Plan: -diverticulitis: Status post low anterior resection patient is on D5 half-normal saline because of which I'll obtain a basic metabolic profile tomorrowthe patient is on DVT prophylaxis with subcutaneous heparin which is appropriate -Hypothyroidism levothyroxine was resumed
[2020-06-27] MEDS: FAMOTIDINE 20 MG/2 ML VIAL IV SCH (21:04)
[2020-06-27] MEDS: diphenhydrAMINE 50 MG/ML 1 ML VIAL IVP PRN (21:09)
[2020-06-28] MEDS: HEPARIN SODIUM,PORCINE 5,000 UNIT/ML 1 ML VIAL SQ SCH ×4 (01:09→23:01)
[2020-06-28] MEDS: D5-0.45% NACL WITH KCL 20MEQ/L 1,000 ML IV SCH ×4 (02:00→23:00)
[2020-06-28 06:46] LABS: HCT 38.6 % (34.0-46.0); HGB 12.2 gm/dL (11.4-16.0); MCH 29.8 pg (25.0-35.0); MCHC 31.6 g/dL (31.0-37.0); Platelet Count 184 k/uL (150-450); RBC 4.11 m/uL (3.80-5.40); RDW 12.3 % (11.5-15.5); WBC 10.5 k/uL (3.8-10.6)
[2020-06-28] MEDS: LACTATED RINGERS 1,000 ML IV SCH (08:00)
[2020-06-28] MEDS: FAMOTIDINE 20 MG/2 ML VIAL IV SCH ×2 (08:06→21:41)
[2020-06-28 09:26] LABS: African American GFR (CKD) 64.5 (60.0-200.0); Anion Gap 5.3 mmol/L (4.00-12.00); BUN/Creat Ratio 8.18 Ratio (12.00-20.00); Calcium 8.5 mg/dL (8.7-10.3); Carbon Dioxide 29.7 mmol/L (21.6-31.8); Non-African American GFR(CKD) 55.7 (60.0-200.0); Potassium 4.2 mmol/L (3.5-5.5)
[2020-06-28] MEDS: ROPIVACAINE 250 MG, fentaNYL (PF) 625 MCG in SODIUM CHLORIDE 0.9% 188 ML EPIDURAL PRN (09:34)
--- NOTE | 2020-06-28 12:40 | P.PN ---
Subjective Progress Note Date: 06/28/20 CHIEF COMPLAINT: Diverticulitis HISTORY OF PRESENT ILLNESS: The patient is a 59-year-old female status post lower anterior resection for diverticulitis. She is postop day 1. She is tolerating clear liquid diet. Pain is controlled with epidural. She is yet to ambulate. ROS: No reports of nausea and vomiting. No bowel movements. No fevers or chills. No new chest pain. No productive sputum PHYSICAL EXAM: VITAL SIGNS: Reviewed CONSTITUTIONAL: Well developed and in no acute distress. EYES: Conjuctivae without sclera icterus. Extraocular movements grossly intact. HEAD, EARS, NOSE, THROAT: Moist buccal mucosa. Head is atraumatic, normocephalic. Hears conversational speech. No nasal drainage. NECK: Supple. No thyroidomegaly. RESPIRATORY: Non-labored respirations and equal bilateral excursions. CARDIOVASCULAR: Palpable 2+ radial pulses. ABDOMEN: Dressings intact. No peritonitis. MUSCULOSKELETAL: No gross deformity of the lower extremities noted. No clubbing. No cyanosis. SKIN: Good skin turgor. Well perfused. NEUROLOGIC: Cranial nerves II through XII grossly intact. No focal or lateralizing signs. PSYCH: Appropriate affect. Alert and oriented to person, place and time. CLINICAL LABS: White blood cell count normal, 10.5 ASSESSMENT: 1. Diverticulitis PLAN: 1. Clear liquid diet 2. Await bowel function 3. Continue epidural. Objective - Vital Signs Vital signs: Vital Signs Temp 98.7 F 06/28/20 07:00 Pulse 77 06/28/20 07:00 Resp 15 06/28/20 07:00 BP 105/67 06/28/20 07:00 Pulse Ox 98 06/28/20 07:00 Intake & Output 06/27/20 06/28/20 06/28/20 18:59 06:59 18:59 Intake Total 3010 Output Total 1150 1700 Balance 1860 -1700 Weight 60.781 kg Intake: IV 2990 Intake, IV Titration 20 Amount Ropivacaine 250 mg 20 fentaNYL (PF) 625 mcg In Sodium Chloride 0.9% 188 ml @ Per Protocol EPIDURAL .Q0M PRN Rx#: [id number] Output: Urine 1100 1700 Estimated Blood Loss 50 Other: Voiding Method Indwelling Catheter Indwelling Catheter Indwelling Catheter - Labs CBC & Chem 7: 06/28/20 05:41 06/28/20 05:41 Labs: Abnormal Lab Results - Last 24 Hours (Table) 06/28/20 Range/Units 05:41 Est GFR (CKD-EPI)NonAf 55.7 L (60.0-200.0) BUN/Creatinine Ratio 8.18 L (12.00-20.00) Ratio Calcium 8.5 L (8.7-10.3) mg/dL Assessment and Plan (1) Diverticulitis large intestine Current Visit: Yes Status: Acute Code(s): K57.32 - DVTRCLI OF LG INT W/O PERFORATION OR ABSCESS W/O BLEEDING SNOMED Code(s): 3721214
[2020-06-28] MEDS: ONDANSETRON 4 MG/2 ML VIAL IVP PRN (13:09)
[2020-06-28 14:09] VITALS: BMI 21.6
--- NOTE | 2020-06-28 16:21 | P.PN ---
Subjective 72-year-old pleasant female was admitted for probable anterior resection of the sigmoid colon for previous diverticulitis. Patient has anastomosis of the colon and to and. Patient presently doesn't have a colostomy. Patient is clinically doing well denied any fever chills dysuria patient does have bowel sounds doesn't have a Nickerson catheter 06/28/2020 Patient had a couple episodes of diarrhea. Patient still hasn't urinated in place and patient still has a Nickerson catheter in place. We'll cut down the fluids to 75 mL per hour S patient was started on liquid diet at this time. Patient is D5 half-normal will be switched to D5 normal saline with potassium. Constitutional: Denied any fatigue denied any fever. Cardio vascular: denied any chest pain, palpitations Gastrointestinal denied any nausea vomiting Pulmonary: Denied any shortness of breath cough Neurologic denied any new focal deficits All inpatient medications were reviewed and appropriate changes in these medications as dictated in the interval history and assessment and plan. Objective - Vital Signs Vital signs: Vital Signs Temp 98.6 F 06/28/20 14:58 Pulse 86 06/28/20 14:58 Resp 17 06/28/20 14:58 BP 96/66 06/28/20 14:58 Pulse Ox 93 L 06/28/20 14:58 Intake & Output 06/27/20 06/28/20 06/28/20 18:59 06:59 18:59 Intake Total 3010 1000 Output Total 1150 1700 950 Balance 1860 -1700 50 Weight 60.781 kg 60.781 kg Intake: IV 2990 Intake, IV Titration 20 1000 Amount D5-0.45% NaCl with KCl 1000 20Meq/l 1,000 ml @ 125 mls/hr IV .Q8H [facility] Rx#: [id number] Ropivacaine 250 mg 20 fentaNYL (PF) 625 mcg In Sodium Chloride 0.9% 188 ml @ Per Protocol EPIDURAL .Q0M PRN Rx#: [id number] Output: Urine 1100 1700 950 Estimated Blood Loss 50 Other: Voiding Method Indwelling Catheter Indwelling Catheter Indwelling Catheter - Exam PHYSICAL EXAMINATION: GENERAL: The patient is alert and oriented x3, not in any acute distress. Well developed, well nourished. HEENT: Pupils are round and equally reacting to light. EOMI. No scleral icterus. No conjunctival pallor. Normocephalic, atraumatic. No pharyngeal erythema. No th yromegaly. CARDIOVASCULAR: S1 and S2 present. No murmurs, rubs, or gallops. PULMONARY: Chest is clear to auscultation, no wheezing or crackles. ABDOMEN: Soft, nontender, nondistended, normoactive bowel sounds. No palpable organomegaly. MUSCULOSKELETAL: No joint swelling or deformity. EXTREMITIES: No cyanosis, clubbing, or pedal edema. NEUROLOGICAL: Gross neurological examination did not reveal any focal deficits. SKIN: No rashes. - Labs CBC & Chem 7: 06/28/20 05:41 06/28/20 05:41 Labs: Abnormal Lab Results - Last 24 Hours (Table) 06/28/20 Range/Units 05:41 Est GFR (CKD-EPI)NonAf 55.7 L (60.0-200.0) BUN/Creatinine Ratio 8.18 L (12.00-20.00) Ratio Calcium 8.5 L (8.7-10.3) mg/dL Assessment and Plan Plan: -diverticulitis: Status post low anterior resection patient is on D5 -normal saline will be continued and patient the blood pressure is low normal at this time will be monitored. Patient was started on diet. -Minimal diarrhea: If she can use to have diarrhea we'll obtain C. diff test. -Hypothyroidism continue with levothyroxine
--- NOTE | 2020-06-28 19:23 | P.PN ---
Progress Note - Text 06/28/20 [id number] 59-year-old female status post low anterior resection. Patient has an epidural catheter for postop pain control with the solution running at 9 mL an hour with a VAS of 1. No nausea complaints of nausea vomiting or pruritus. Patient has been able to ambulate pretty well. plan to continue epidural infusion
[2020-06-28] MEDS: diphenhydrAMINE 50 MG/ML 1 ML VIAL IVP PRN (20:57)
[2020-06-29] MEDS: LACTATED RINGERS 1,000 ML IV SCH (05:24)
[2020-06-29] MEDS: ROPIVACAINE 250 MG, fentaNYL (PF) 625 MCG in SODIUM CHLORIDE 0.9% 188 ML EPIDURAL PRN (05:59)
[2020-06-29] MEDS: HEPARIN SODIUM,PORCINE 5,000 UNIT/ML 1 ML VIAL SQ SCH ×3 (07:34→23:15)
[2020-06-29] MEDS: FAMOTIDINE 20 MG/2 ML VIAL IV SCH ×2 (07:34→20:33)
[2020-06-29 09:52] LABS: African American GFR (CKD) 82.3 (60.0-200.0); Anion Gap 4.9 mmol/L (4.00-12.00); BUN/Creat Ratio 5.56 Ratio (12.00-20.00); Calcium 8.6 mg/dL (8.7-10.3); Carbon Dioxide 28.1 mmol/L (21.6-31.8); Potassium 4.3 mmol/L (3.5-5.5)
--- NOTE | 2020-06-29 14:52 | P.PN ---
Subjective Progress Note Date: 06/29/20 CHIEF COMPLAINT: Diverticulitis HISTORY OF PRESENT ILLNESS: The patient is a 59-year-old female status post lower anterior resection for diverticulitis. She is postop day 2. She had a bowel movement with flatus. She reports low appetite. She is concerned about her pain once the epidural is out. She is ambulating in the rest room. She used her incentive spirometer today. ROS: No reports of nausea and vomiting. No fevers or chills. No new chest pain. No productive sputum PHYSICAL EXAM: VITAL SIGNS: Reviewed CONSTITUTIONAL: Well developed and in no acute distress. EYES: Conjuctivae without sclera icterus. Extraocular movements grossly intact. HEAD, EARS, NOSE, THROAT: Moist buccal mucosa. Head is atraumatic, normocephalic. Hears conversational speech. No nasal drainage. NECK: Supple. No thyroidomegaly. RESPIRATORY: Non-labored respirations and equal bilateral excursions. CARDIOVASCULAR: Palpable 2+ radial pulses. ABDOMEN: Dressings intact. No peritonitis. MUSCULOSKELETAL: No gross deformity of the lower extremities noted. No clubbing. No cyanosis. SKIN: Good skin turgor. Well perfused. NEUROLOGIC: Cranial nerves II through XII grossly intact. No focal or later alizing signs. PSYCH: Appropriate affect. Alert and oriented to person, place and time. CLINICAL LABS: White blood cell count normal, 10.5 ASSESSMENT: 1. Diverticulitis PLAN: 1. Incentive spirometer education reinforced. 2. Advance diet. 3. Discontinue epidural per protocol for tomorrow. Objective - Vital Signs Vital signs: Vital Signs Temp 98.7 F 06/29/20 07:00 Pulse 83 06/29/20 01:14 Resp 16 06/29/20 08:00 BP 110/75 06/29/20 07:00 Pulse Ox 94 L 06/29/20 07:00 Intake & Output 06/28/20 06/29/20 06/29/20 18:59 06:59 18:59 Intake Total 1000 183.75 Output Total 950 1850 710 Balance 50 -1666.25 -710 Weight 60.781 kg Intake: Intake, IV Titration 1000 183.75 Amount D5-0.45% NaCl with KCl 1000 20Meq/l 1,000 ml @ 75 mls /hr IV .[id number] [facility] Rx#: [id number] Ropivacaine 250 mg 183.75 fentaNYL (PF) 625 mcg In Sodium Chloride 0.9% 188 ml @ Per Protocol EPIDURAL .Q0M PRN Rx#: [id number] Output: Urine 950 1850 710 Other: Voiding Method Indwelling Catheter Indwelling Catheter Indwelling Catheter # Bowel Movements 2 - Labs CBC & Chem 7: 06/28/20 05:41 06/29/20 05:44 Labs: Abnormal Lab Results - Last 24 Hours (Table) 06/29/20 Range/Units 05:44 BUN 5.0 L (9.0-27.0) mg/dL BUN/Creatinine Ratio 5.56 L (12.00-20.00) Ratio Glucose 117 H (70-110) mg/dL Calcium 8.6 L (8.7-10.3) mg/dL Assessment and Plan (1) Diverticulitis large intestine Current Visit: Yes Status: Acute Code(s): K57.32 - DVTRCLI OF LG INT W/O PERFORATION OR ABSCESS W/O BLEEDING SNOMED Code(s): 5275916
--- NOTE | 2020-06-29 15:52 | P.PN ---
Subjective Progress Note Date: 06/29/20 72-year-old pleasant female was admitted for probable anterior resection of the sigmoid colon for previous diverticulitis. Patient has anastomosis of the colon and to and. Patient presently doesn't have a colostomy. Patient is clinically doing well denied any fever chills dysuria patient does have bowel sounds doesn't have a Nickerson catheter 06/28/2020 Patient had a couple episodes of diarrhea. Patient still hasn't urinated in place and patient still has a Nickerson catheter in place. We'll cut down the fluids to 75 mL per hour S patient was started on liquid diet at this time. Patient is D5 half-normal will be switched to D5 normal saline with potassium. 06/29/2020 Patient continues to have diarrhea, 7 date episodes yesterday and reports she has had diarrhea continuously again today which is watery. Still is epidural in place for pain, Nickerson catheter is also still in place. She is on clear liquids tolerating that. Also was continued on IV fluid. Renal function and electrolytes normal. Afebrile, hemodynamically stable. On room air saturating 97%. Constitutional: Denied any fatigue denied any fever. Cardio vascular: denied any chest pain, palpitations Gastrointestinal denied any nausea vomiting Pulmonary: Denied any shortness of breath cough Neurologic denied any new focal deficits Objective - Vital Signs Vital signs: Vital Signs Temp 97.8 F 06/29/20 15:15 Pulse 83 06/29/20 01:14 Resp 15 06/29/20 15:15 BP 108/73 06/29/20 15:15 Pulse Ox 97 06/29/20 15:15 Intake & Output 06/28/20 06/29/20 06/29/20 18:59 06:59 18:59 Intake Total 1000 183.75 Output Total 950 1850 710 Balance 50 -1666.25 -710 Weight 60.781 kg Intake: Intake, IV Titration 1000 183.75 Amount D5-0.45% NaCl with KCl 1000 20Meq/l 1,000 ml @ 75 mls /hr IV .[id number] [facility] Rx#: [id number] Ropivacaine 250 mg 183.75 fentaNYL (PF) 625 mcg In Sodium Chloride 0.9% 188 ml @ Per Protocol EPIDURAL .Q0M PRN Rx#: [id number] Output: Urine 950 1850 710 Other: Voiding Method Indwelling Catheter Indwelling Catheter Indwelling Catheter # Bowel Movements 2 - Exam PHYSICAL EXAMINATION: GENERAL: The patient is alert and oriented x3, not in any acute distress. Well developed, well nourished. HEENT: Pupils are round and equally reacting to light. EOMI. No scleral icterus. No conjunctival pallor. Normocephalic, atraumatic. No pharyngeal erythema. No thyromegaly. CARDIOVASCULAR: S1 and S2 present. No murmurs, rubs, or gallops. PULMONARY: Chest is clear to auscultation, no wheezing or crackles. ABDOMEN: Soft, nontender, nondistended, normoactive bowel sounds. No palpable organomegaly. MUSCULOSKELETAL: No joint swelling or deformity. EXTREMITIES: No cyanosis, clubbing, or pedal edema. NEUROLOGICAL: Gross neurological examination did not reveal any focal deficits. SKIN: No rashes. - Labs CBC & Chem 7: 06/28/20 05:41 06/29/20 05:44 Labs: Abnormal Lab Results - Last 24 Hours (Table) 06/29/20 Range/Units 05:44 BUN 5.0 L (9.0-27.0) mg/dL BUN/Creatinine Ratio 5.56 L (12.00-20.00) Ratio Glucose 117 H (70-110) mg/dL Calcium 8.6 L (8.7-10.3) mg/dL Assessment and Plan Assessment: Plan: -diverticulitis: Status post low anterior resection patient is on D5 -normal saline will be continued and patient the blood pressure stable. Still has epidural in place for pain, tolerating clears. -Diarrhea: Patient is not on antibiotics, continues to have frequent watery diarrhea we'll check a C. diff sample, as mentioned she is continued on IV fluids. Monitor BMP, electrolytes. -Hypothyroidism continue with levothyroxine
[2020-06-29] MEDS: D5-0.45% NACL WITH KCL 20MEQ/L 1,000 ML IV SCH (18:57)
--- NOTE | 2020-06-29 20:39 | P.PN ---
Progress Note - Text 06/29/202017 72-year-old female status post low anterior resection. She has an epidural catheter for postop pain control with the solution running at 8 mL an hour with a VAS of 1. No complaint of nausea vomiting no complains of pruritus. Patient has no motor or sensory deficits. Plan to continue epidural denied and DC in the morning
[2020-06-29] MEDS: diphenhydrAMINE 50 MG/ML 1 ML VIAL IVP PRN (20:47)
[2020-06-30] MEDS: D5-0.45% NACL WITH KCL 20MEQ/L 1,000 ML IV SCH ×2 (02:57→19:08)
[2020-06-30] MEDS: ROPIVACAINE 250 MG, fentaNYL (PF) 625 MCG in SODIUM CHLORIDE 0.9% 188 ML EPIDURAL PRN (05:14)
[2020-06-30] MEDS: LACTATED RINGERS 1,000 ML IV SCH (05:24)
[2020-06-30] MEDS: LEVOTHYROXINE 25 MCG TAB PO SCH (05:28)
[2020-06-30] MEDS: ONDANSETRON 4 MG/2 ML VIAL IVP PRN ×2 (07:20→23:23)
[2020-06-30] MEDS: HEPARIN SODIUM,PORCINE 5,000 UNIT/ML 1 ML VIAL SQ SCH ×3 (07:21→23:23)
[2020-06-30] MEDS: FAMOTIDINE 20 MG/2 ML VIAL IV SCH ×2 (07:22→20:16)
[2020-06-30] MEDS ORDERED: HYDROmorphone 0.5 MG/0.5 ML SYRINGE IVP PRN (09:42)
[2020-06-30] MEDS: HYDROcodone/APAP 5-325MG 1 EACH TAB PO PRN ×2 (10:54→23:24)
--- NOTE | 2020-06-30 10:59 | P.PN ---
Subjective Progress Note Date: 06/30/20 CHIEF COMPLAINT: Diverticulitis HISTORY OF PRESENT ILLNESS: The patient is a 59-year-old female status post lower anterior resection for diverticulitis. She is postop day 3. Patient did have a bowel movement and flatus. She did have some nausea this morning. Epidural and Nickerson catheter scheduled to be discontinued today. Stool for C. diff was negative. She's currently on low fiber diet. She's afebrile. PHYSICAL EXAM: VITAL SIGNS: Reviewed. GENERAL: Well-developed in no acute distress. HEENT: No sclera icterus. Extraocular movements grossly intact. Moist buccal mucosa. Head is atraumatic, normocephalic. ABDOMEN: Soft. Nondistended. NEUROLOGIC: Alert and oriented. Cranial nerves II through XII grossly intact. ASSESSMENT: 1. Diverticulitis Status post lower anterior resection PLAN: -Patient scheduled for epidural for catheter to be removed -Start patient on oral [place] and IV Dilaudid as needed for pain -Encourage patient to ambulate and to use incentive spirometer -Continue low fiber diet Physician Echocardiography Tech note has been reviewed by physician. Signing provider agrees with the documented findings, assessment, and plan of care. Objective - Vital Signs Vital signs: Vital Signs Temp 98.7 F 06/30/20 07:00 Pulse 87 06/30/20 07:20 Resp 16 06/30/20 07:20 BP 120/81 06/30/20 07:00 Pulse Ox 93 L 06/30/20 07:00 Intake & Output 06/29/20 06/30/20 06/30/20 18:59 06:59 18:59 Intake Total 199.633 Output Total 710 2350 Balance -710 -2150.367 Intake: Intake, IV Titration 199.633 Amount Ropivacaine 250 mg 199.633 fentaNYL (PF) 625 mcg In Sodium Chloride 0.9% 188 ml @ Per Protocol EPIDURAL .Q0M PRN Rx#: [id number] Output: Urine 710 2350 Other: Voiding Method Indwelling Catheter Indwelling Catheter Indwelling Catheter # Bowel Movements 2 1 - Labs CBC & Chem 7: 06/28/20 05:41 06/29/20 05:44
--- NOTE | 2020-06-30 11:35 | P.PN ---
Progress Note - Text 06/30/20 650am 59-year-old female status post low anterior resection by Dr. simental. Patient has an epidural catheter with the solution running at 8 mL an hour with a VAS of 1. No motor or sensory deficit noted. Plantar VCD epidural today nurse informed
[2020-06-30] MEDS: HYDROmorphone 1 MG/ML 1 ML SYRINGE IVP PRN ×3 (13:08→20:16)
[2020-06-30] MEDS: KETOROLAC 15 MG/ML 1 ML VIAL IVP SCH ×3 (13:27→23:23)
--- NOTE | 2020-06-30 15:29 | P.PN ---
Subjective 72-year-old pleasant female was admitted for probable anterior resection of the sigmoid colon for previous diverticulitis. Patient has anastomosis of the colon and to and. Patient presently doesn't have a colostomy. Patient is clinically doing well denied any fever chills dysuria patient does have bowel sounds doesn't have a Nickerson catheter 06/28/2020 Patient had a couple episodes of diarrhea. Patient still hasn't urinated in place and patient still has a Nickerson catheter in place. We'll cut down the fluids to 75 mL per hour S patient was started on liquid diet at this time. Patient is D5 half-normal will be switched to D5 normal saline with potassium. 06/29/2020 Patient continues to have diarrhea, 7 date episodes yesterday and reports she has had diarrhea continuously again today which is watery. Still is epidural in place for pain, Nickerson catheter is also still in place. She is on clear liquids tolerating that. Also was continued on IV fluid. Renal function and electrolytes normal. Afebrile, hemodynamically stable. On room air saturating 97%. 06/30/2020 Patient epidural was removed after which patient started significant having significant pain patient evidently was having bowel sounds are was unable to hear with an abdominal binder. Patient didn't pass gas didn't move her bowel yet. Constitutional: Denied any fatigue denied any fever. Cardio vascular: denied any chest pain, palpitations Gastrointestinal denied any nausea vomiting Pulmonary: Denied any shortness of breath cough Neurologic denied any new focal deficits Objective - Vital Signs Vital signs: Vital Signs Temp 97.6 F 06/30/20 14:47 Pulse 69 06/30/20 14:47 Resp 16 06/30/20 14:47 BP 134/87 06/30/20 14:47 Pulse Ox 95 06/30/20 14:47 Intake & Output 06/29/20 06/30/20 06/30/20 18:59 06:59 18:59 Intake Total 199.633 525 Output Total 710 2350 Balance -710 -2150.367 525 Weight 60.781 kg Intake: Intake, IV Titration 199.633 525 Amount D5-0.45% NaCl with KCl 525 20Meq/l 1,000 ml @ 75 mls /hr IV .[id number] [facility] Rx#: [id number] Ropivacaine 250 mg 199.633 fentaNYL (PF) 625 mcg In Sodium Chloride 0.9% 188 ml @ Per Protocol EPIDURAL .Q0M PRN Rx#: [id number] Output: Urine 710 2350 Other: Voiding Method Indwelling Catheter Indwelling Catheter Indwelling Catheter # Bowel Movements 2 1 - Exam PHYSICAL EXAMINATION: GENERAL: The patient is alert and oriented x3, not in any acute distress. Well developed, well nourished. HEENT: Pupils are round and equally reacting to light. EOMI. No scleral icterus. No conjunctival pallor. Normocephalic, atraumatic. No pharyngeal erythema. No thyromegaly. CARDIOVASCULAR: S1 and S2 present. No murmurs, rubs, or gallops. PULMONARY: Chest is clear to auscultation, no wheezing or crackles. ABDOMEN: Soft, nontender, nondistended, normoactive bowel sounds. No palpable organomegaly. MUSCULOSKELETAL: No joint swelling or deformity. EXTREMITIES: No cyanosis, clubbing, or pedal edema. NEUROLOGICAL: Gross neurological examination did not reveal any focal deficits. SKIN: No rashes. - Labs CBC & Chem 7: 06/28/20 05:41 06/29/20 05:44 Assessment and Plan Plan: -diverticulitis: Still having significant amount of pain. Patient will be continued on IV fluids. Diet as per primary service -Minimal diarrhea: C. diff was negative. -Hypothyroidism continue with levothyroxine
[2020-07-01] MEDS: HYDROmorphone 1 MG/ML 1 ML SYRINGE IVP PRN ×3 (02:44→10:44)
[2020-07-01] MEDS: D5-0.45% NACL WITH KCL 20MEQ/L 1,000 ML IV SCH ×2 (04:19→19:02)
[2020-07-01] MEDS: LACTATED RINGERS 1,000 ML IV SCH (04:20)
[2020-07-01] MEDS: KETOROLAC 15 MG/ML 1 ML VIAL IVP SCH ×4 (05:50→23:04)
[2020-07-01] MEDS: LEVOTHYROXINE 25 MCG TAB PO SCH (05:50)
[2020-07-01 06:51] LABS: HCT 36.4 % (34.0-46.0); HGB 12.2 gm/dL (11.4-16.0); MCHC 33.6 g/dL (31.0-37.0); MCV 92.1 fL (80.0-100.0); Mean Platelet Volume 7.5; Platelet Count 238 k/uL (150-450); RBC 3.95 m/uL (3.80-5.40); RDW 11.7 % (11.5-15.5); WBC 6.7 k/uL (3.8-10.6)
[2020-07-01] MEDS: FAMOTIDINE 20 MG/2 ML VIAL IV SCH ×2 (07:24→19:36)
[2020-07-01] MEDS: HEPARIN SODIUM,PORCINE 5,000 UNIT/ML 1 ML VIAL SQ SCH ×3 (07:24→23:04)
[2020-07-01 09:21] LABS: African American GFR (CKD) 111.5 (60.0-200.0); Anion Gap 6.4 mmol/L (4.00-12.00); BUN/Creat Ratio 7.14 Ratio (12.00-20.00); Carbon Dioxide 30.6 mmol/L (21.6-31.8); Non-African American GFR(CKD) 96.2 (60.0-200.0); Potassium 4.1 mmol/L (3.5-5.5)
--- NOTE | 2020-07-01 12:00 | P.PN ---
Subjective Progress Note Date: 07/01/20 CHIEF COMPLAINT: Diverticulitis HISTORY OF PRESENT ILLNESS: The patient is a 59-year-old female status post lower anterior resection for diverticulitis. She is postop day 4. Epidural and Nickerson catheter removed yesterday. Patient was started on [place] and Toradol to help with pain control. She also has been using the IV Dilaudid still. She reports her pain 3 out of 10 currently but he can still get up to 10 out of 10. She was reports that her last stool was on Tuesday and had been diarrhea. Her ap petite is decreased she is only eating a few bites of her food. She does report nausea when her pain gets uncontrolled. Denies any vomiting. She reports no bowel movement or passing gas since Tuesday. On a low fiber diet. She's afebrile. WBC 6.7 PHYSICAL EXAM: VITAL SIGNS: Reviewed. GENERAL: Well-developed in no acute distress. HEENT: No sclera icterus. Extraocular movements grossly intact. Moist buccal mucosa. Head is atraumatic, normocephalic. ABDOMEN: Soft. Distended diffuse tenderness NEUROLOGIC: Alert and oriented. Cranial nerves II through XII grossly intact. ASSESSMENT: 1. Diverticulitis Status post lower anterior resection PLAN: -Continue the [place], Toradol and Dilaudid as needed for pain -Encourage patient to ambulate and to use incentive spirometer -We'll place patient back on a full liquid diet until her pain and bowel function has improved -change [place] to every 4 hours as needed instead of every 6 as needed Physician Ironworker Wire Fence Erector note has been reviewed by physician. Signing provider agrees with the documented findings, assessment, and plan of care. Objective - Vital Signs Vital signs: Vital Signs Temp 98.0 F 07/01/20 07:00 Pulse 66 07/01/20 07:24 Resp 18 07/01/20 07:24 BP 129/89 07/01/20 07:00 Pulse Ox 94 L 07/01/20 07:00 Intake & Output 06/30/20 07/01/20 07/01/20 18:59 06:59 18:59 Intake Total 525 Balance 525 Weight 60.781 kg Intake: Intake, IV Titration 525 Amount D5-0.45% NaCl with KCl 525 20Meq/l 1,000 ml @ 75 mls /hr IV .[id number] [facility] Rx#: [id number] Other: Voiding Method Indwelling Catheter Indwelling Catheter # Voids 1 - Labs CBC & Chem 7: 07/01/20 06:21 07/01/20 06:21 Labs: Abnormal Lab Results - Last 24 Hours (Table) 07/01/20 Range/Units 06:21 BUN 5.0 L (9.0-27.0) mg/dL BUN/Creatinine Ratio 7.14 L (12.00-20.00) Ratio Glucose 111 H (70-110) mg/dL
--- NOTE | 2020-07-01 14:43 | P.PN ---
Subjective 72-year-old pleasant female was admitted for probable anterior resection of the sigmoid colon for previous diverticulitis. Patient has anastomosis of the colon and to and. Patient presently doesn't have a colostomy. Patient is clinically doing well denied any fever chills dysuria patient does have bowel sounds doesn't have a Nickerson catheter 06/28/2020 Patient had a couple episodes of diarrhea. Patient still hasn't urinated in place and patient still has a Nickerson catheter in place. We'll cut down the fluids to 75 mL per hour S patient was started on liquid diet at this time. Patient is D5 half-normal will be switched to D5 normal saline with potassium. 06/29/2020 Patient continues to have diarrhea, 7 date episodes yesterday and reports she has had diarrhea continuously again today which is watery. Still is epidural in place for pain, Nickerson catheter is also still in place. She is on clear liquids tolerating that. Also was continued on IV fluid. Renal function and electrolytes normal. Afebrile, hemodynamically stable. On room air saturating 97%. 06/30/2020 Patient epidural was removed after which patient started significant having significant pain patient evidently was having bowel sounds are was unable to hear with an abdominal binder. Patient didn't pass gas didn't move her bowel yet. 07/01/2020 Epidural was removed patient abdomen is mildly distended with gas. Patient is not passing much of gas. Patient does not have any bowel movement for last 2-3 days. Patient was asked to avoid Dilaudid for pain. Constitutional: Denied any fatigue denied any fever. Cardio vascular: denied any chest pain, palpitations Gastrointestinal denied any nausea vomiting Pulmonary: Denied any shortness of breath cough Neurologic denied any new focal deficits Objective - Vital Signs Vital signs: Vital Signs Temp 98.0 F 07/01/20 07:00 Pulse 66 07/01/20 07:24 Resp 18 07/01/20 07:24 BP 129/89 07/01/20 07:00 Pulse Ox 94 L 07/01/20 07:00 Intake & Output 06/30/20 07/01/20 07/01/20 18:59 06:59 18:59 Intake Total 525 Balance 525 Weight 60.781 kg Intake: Intake, IV Titration 525 Amount D5-0.45% NaCl with KCl 525 20Meq/l 1,000 ml @ 75 mls /hr IV .[id number] [facility] Rx#: [id number] Other: Voiding Method Indwelling Catheter Indwelling Catheter # Voids 1 - Exam PHYSICAL EXAMINATION: GENERAL: The patient is alert and oriented x3, not in any acute distress. Well developed, well nourished. HEENT: Pupils are round and equally reacting to light. EOMI. No scleral icterus. No conjunctival pallor. Normocephalic, atraumatic. No pharyngeal erythema. No thyromegaly. CARDIOVASCULAR: S1 and S2 present. No murmurs, rubs, or gallops. PULMONARY: Chest is clear to auscultation, no wheezing or crackles. ABDOMEN: Soft, nontender, mildly distended and tympanic does have bowel sounds. No palpable organomegaly. MUSCULOSKELETAL: No joint swelling or deformity. EXTREMITIES: No cyanosis, clubbing, or pedal edema. NEUROLOGICAL: Gross neurological examination did not reveal any focal deficits. SKIN: No rashes. - Labs CBC & Chem 7: 07/01/20 06:21 07/01/20 06:21 Labs: Abnormal Lab Results - Last 24 Hours (Table) 07/01/20 Range/Units 06:21 BUN 5.0 L (9.0-27.0) mg/dL BUN/Creatinine Ratio 7.14 L (12.00-20.00) Ratio Glucose 111 H (70-110) mg/dL Assessment and Plan Plan: -diverticulitis: This posterior lower anterior resection .patient pain significantly improved patient abdomen is distended. IV fluids probably can be discontinued.. Diet as per primary service -Minimal diarrhea: C. diff was negative. Diarrhea is resolved patient is presently constipated -Hypothyroidism continue with levothyroxine
[2020-07-01] MEDS: HYDROcodone/APAP 5-325MG 1 EACH TAB PO PRN ×2 (15:12→19:36)
[2020-07-01] MEDS: diphenhydrAMINE 50 MG/ML 1 ML VIAL IVP PRN (23:04)
[2020-07-02] MEDS: HYDROcodone/APAP 5-325MG 1 EACH TAB PO PRN ×2 (02:29→08:17)
[2020-07-02 04:47] VITALS: RESP 16
[2020-07-02] MEDS: LACTATED RINGERS 1,000 ML IV SCH (05:11)
[2020-07-02] MEDS: LEVOTHYROXINE 25 MCG TAB PO SCH (05:22)
[2020-07-02] MEDS: D5-0.45% NACL WITH KCL 20MEQ/L 1,000 ML IV SCH (05:22)
[2020-07-02] MEDS: KETOROLAC 15 MG/ML 1 ML VIAL IVP SCH ×2 (05:22→11:52)
[2020-07-02] MEDS: HEPARIN SODIUM,PORCINE 5,000 UNIT/ML 1 ML VIAL SQ SCH (08:12)
[2020-07-02] MEDS: FAMOTIDINE 20 MG/2 ML VIAL IV SCH (08:14)
--- NOTE | 2020-07-02 12:12 | P.DS ---
Providers Date of admission: 06/27/20 05:59 Expected date of discharge: 07/02/20 Attending physician: Hemant Cordon Consults: 06/27/20 09:07 Consult Physician Routine Consulting Provider: Eula Miller Consult Reason/Comments: Medical management Do you want consulting provider notified?: Yes [facility] Course: Discharge diagnosis 1. Diverticulitis Status post lower anterior resection Hospital course The patient is a 59-year-old female status post lower anterior resection for diverticulitis. Patient is tolerating diet. She denies any nausea or vomiting. She is having bowel movements. She is up and ambulating. Pain is controlled. She is stable for discharge home. Physician Work Ticket Distributor note has been reviewed by physician. Signing provider agrees with the documented findings, assessment, and plan of care. Patient Condition at Discharge: Stable Plan - Discharge Summary Discharge Rx Participant: Yes New Discharge Prescriptions: New Ibuprofen [Motrin] 600 mg PO Q8HR PRN #30 tab PRN Reason: Pain Acetaminophen Tab [Tylenol Tab] 650 mg PO Q4H PRN #30 tablet PRN Reason: Pain oxyCODONE HCL [OxyIR] 5 mg PO Q6H PRN 3 Days #12 tab PRN Reason: Pain Continue Levothyroxine Sodium [Synthroid] 25 mcg PO DAILY Estradiol 0.25 mg PO DAILY L.acidoph,Paracasei, B.lactis [Probiotic] 1 each PO DAILY Discontinued Hyoscyamine Sulfate [Levsin] 0.125 mg PO DAILY PRN PRN Reason: Spasms Discharge Medication List Estradiol 0.25 mg PO DAILY 05/21/20 [History] Levothyroxine Sodium [Synthroid] 25 mcg PO DAILY 05/21/20 [History] L.acidoph,Paracasei, B.lactis [Probiotic] 1 each PO DAILY 06/24/20 [History] Acetaminophen Tab [Tylenol Tab] 650 mg PO Q4H PRN #30 tablet 07/02/20 [Rx] Ibuprofen [Motrin] 600 mg PO Q8HR PRN #30 tab 07/02/20 [Rx] oxyCODONE HCL [OxyIR] 5 mg PO Q6H PRN 3 Days #12 tab 07/02/20 [Rx] Follow up Appointment(s)/Referral(s): Hemant Cordon MD [STAFF PHYSICIAN] - 1 Week Activity/Diet/Wound Care/Special Instructions: No driving while taking narcotics No lifting over 10 pounds You may shower. No soaking or tub baths for 2 weeks Very light activity until you are reevaluated at your follow up appointment with your surgeon Diet: advance diet slowly at home Discharge Disposition: HOME SELF-CARE
[2020-07-02 15:29] VITALS: BP 118/81; PULSE 80; TEMP 97.4
== END 2020-07-02 17:10 | disposition home or self-care (01) | DRG 331 ==
LOC: 2ORMAIN 05:59 → 4SSUR 12:56
PROVIDERS: ADMIT Surgery; ATTEND Surgery
PROC: 0DBP0ZZ Excision of Rectum, Open Approach (ICD-10-PCS; 2020-06-27)
PROC: 0DJD8ZZ Inspection of Lower Intestinal Tract, Via Natural or Artificial Opening Endoscopic (ICD-10-PCS; 2020-06-27)
PROC: 0DTN0ZZ Resection of Sigmoid Colon, Open Approach (ICD-10-PCS; principal; 2020-06-27 07:40)
DX: K57.32 Diverticulitis of large intestine without perforation or abscess without bleeding (principal); K21.9 Gastro-esophageal reflux disease without esophagitis; E03.9 Hypothyroidism, unspecified; R11.0 Nausea; K44.9 Diaphragmatic hernia without obstruction or gangrene; K58.9 Irritable bowel syndrome, unspecified; Z79.890 Hormone replacement therapy; Z79.899 Other long term (current) drug therapy; Z90.710 Acquired absence of both cervix and uterus; Z90.49 Acquired absence of other specified parts of digestive tract; Z98.890 Other specified postprocedural states; Z87.891 Personal history of nicotine dependence; Z80.9 Family history of malignant neoplasm, unspecified
CPT/HCPCS: 80048; 85027; 86850; 86900; 86901; 87324; 88307

== ENCOUNTER 2020-10-21 15:28 | Emergency (ER) | payer OTHER ==
[2020-10-21] MEDS ORDERED: SODIUM CHLORIDE 0.9% 500 ML 500 ML IV STA (15:40)
[2020-10-21] MEDS ORDERED: SODIUM CHLORIDE 0.9% 1,000 ML IV STA (15:40)
--- NOTE | 2020-10-21 15:44 | ED ---
Abdominal Pain HPI - General Stated Complaint: abd pain Time Seen by Provider: 10/21/20 15:31 Source: patient, RN notes reviewed Mode of arrival: ambulatory Limitations: no limitations - History of Present Illness Initial Comments: This a 52-year-old female presents emergency Department chief complaint of abdominal pain. Patient states she's been having increasing abdominal pain last few days. Patient does admit that she had recurrent diverticulitis last years and which she had a bowel resection by Dr. Cordon in June. She states she was doing well recently she states that she eats she has increasing lower abdominal pain. Patient states she did have some constipation that resolved and she still has her pain. No dysuria no hematuriaor back pain or flank pain no chest pain or shortness breath no reported fever - Related Data Home Medications Medication Instructions Recorded Confirmed Estradiol 0.25 mg PO DAILY 05/21/20 06/27/20 Levothyroxine Sodium [Synthroid] 25 mcg PO DAILY 05/21/20 06/27/20 L.acidoph,Paracasei, B.lactis 1 each PO DAILY 06/24/20 06/27/20 [Probiotic] Previous Rx's Medication Instructions Recorded Acetaminophen Tab [Tylenol Tab] 650 mg PO Q4H PRN #30 tablet 07/02/20 Ibuprofen [Motrin] 600 mg PO Q8HR PRN #30 tab 07/02/20 oxyCODONE HCL [OxyIR] 5 mg PO Q6H PRN 3 Days #12 tab 07/02/20 Metoclopramide [Reglan] 10 mg PO TID #15 tab 10/21/20 bisacodyL [Dulcolax] 5 mg PO DAILY #15 tablet. 10/21/20 Allergies Allergy/AdvReac Type Severity Reaction Status Date / Time No Known Allergies Allergy Verified 06/27/20 06:24 Review of Systems ROS Statement: Those systems with pertinent positive or pertinent negative responses have been documented in the HPI. ROS Other: All systems not noted in ROS Statement are negative. Past Medical History Past Medical History: GERD/Reflux, Thyroid Disorder Additional Past Medical History / Comment(s): diverticulitis, hiatal hernia, IBS, colitis History of Any Multi-Drug Resistant Organisms: None Reported Past Surgical History: Cholecystectomy, Hysterectomy, Tonsillectomy Additional Past Surgical History / Comment(s): andrae bunionectomy, hammertoe surgery rt foot, Past Anesthesia/Blood Transfusion Reactions: No Reported Reaction Past Psychological History: No Psychological Hx Reported Smoking Status: Former smoker Past Alcohol Use History: Occasional Past Drug Use History: None Reported - Past Family History Mother History Unknown: Yes Additional Family Medical History / Comment(s): grandmother but not immediate family members Father Family Medical History: Cancer General Exam Limitations: no limitations General appearance: alert, in no apparent distress Head exam: Present: atraumatic, normocephalic, normal inspection Eye exam: Present: normal appearance, PERRL, EOMI. Absent: scleral icterus, conjunctival injection, periorbital swelling ENT exam: Present: normal exam, normal oropharynx, mucous membranes moist, TM's normal bilaterally Neck exam: Present: normal inspection, full ROM. Absent: tenderness, meningismus, lymphadenopathy Respiratory exam: Present: normal lung sounds bilaterally. Absent: respiratory distress, wheezes, rales, rhonchi, stridor Cardiovascular Exam: Present: regular rate, normal rhythm, normal heart sounds. Absent: systolic murmur, diastolic murmur, rubs, gallop, clicks GI/Abdominal exam: Present: soft, tenderness (Lower abdominal tenderness), normal bowel sounds. Absent: distended, guarding, rebound, rigid Back exam: Absent: CVA tenderness (R), CVA tenderness (L) Neurological exam: Present: alert, oriented X3 Skin exam: Present: warm, dry, intact, normal color. Absent: rash Course Vital Signs 10/21/20 10/21/20 15:29 16:01 Temperature 98.5 F Pulse Rate 93 74 Respiratory 16 18 Rate Blood Pressure 147/97 130/89 O2 Sat by Pulse 100 100 Oximetry Medical Decision Making - Medical Decision Making 52-year-old presented for abdominal pain. Labwork reviewed and no significant family. CT reviewed shows stable surgery, no signs of infection. Though upon further review of CAT scan shows large filled stomach and moderate amount of stool burden within the small and large intestine. Patient will be given laxatives advised to follow-up with her surgeon and will be given a few doses of Reglan increased Gastric emptying. - Lab Data Result diagrams: 10/21/20 15:46 10/21/20 15:46 Lab Results 10/21/20 10/21/20 10/21/20 Range/Units 15:46 15:46 15:46 WBC 7.8 (3.8-10.6) k/uL RBC 4.64 (3.80-5.40) m/uL Hgb 14.0 (11.4-16.0) gm/dL Hct 42.3 (34.0-46.0) % MCV 91.0 (80.0-100.0) fL MCH 30.2 (25.0-35.0) pg MCHC 33.2 (31.0-37.0) g/dL RDW 12.2 (11.5-15.5) % Plt Count 188 (150-450) k/uL MPV 7.9 Neutrophils % 56 % Lymphocytes % 33 % Monocytes % 7 % Eosinophils % 2 % Basophils % 1 % Neutrophils # 4.4 (1.3-7.7) k/uL Lymphocytes # 2.6 (1.0-4.8) k/uL Monocytes # 0.6 (0-1.0) k/uL Eosinophils # 0.2 (0-0.7) k/uL Basophils # 0.1 (0-0.2) k/uL PT 10.1 (9.0-12.0) sec INR 0.9 (<1.2) APTT 23.5 (22.0-30.0) sec Sodium (137-145) mmol/L Potassium (3.5-5.1) mmol/L Chloride (98-107) mmol/L Carbon Dioxide (22-30) mmol/L Anion Gap mmol/L BUN (7-17) mg/dL Creatinine (0.52-1.04) mg/dL Est GFR (CKD-EPI)AfAm (>60 ml/min/1.73 sqM) Est GFR (CKD-EPI)NonAf (>60 ml/min/1.73 sqM) Glucose (74-99) mg/dL Plasma Lactic Acid Win (0.7-2.0) mmol/L Calcium (8.4-10.2) mg/dL Total Bilirubin (0.2-1.3) mg/dL AST (14-36) U/L ALT (4-34) U/L Alkaline Phosphatase (38-126) U/L Total Protein (6.3-8.2) g/dL Albumin (3.5-5.0) g/dL Amylase (30-110) U/L Lipase (23-300) U/L Urine Color Yellow Urine Appearance Clear (Clear) Urine pH 7.0 (5.0-8.0) Ur Specific [place] 1.013 (1.001-1.035) Urine Protein Negative (Negative) Urine Glucose (UA) Negative (Negative) Urine Ketones Negative (Negative) Urine Blood Negative (Negative) Urine Nitrite Negative (Negative) Urine Bilirubin Negative (Negative) Urine Urobilinogen <2.0 (<2.0) mg/dL Ur Leukocyte Esterase Negative (Negative) 10/21/20 10/21/20 Range/Units 15:46 15:46 WBC (3.8-10.6) k/uL RBC (3.80-5.40) m/uL Hgb (11.4-16.0) gm/dL Hct (34.0-46.0) % MCV (80.0-100.0) fL MCH (25.0-35.0) pg MCHC (31.0-37.0) g/dL RDW (11.5-15.5) % Plt Count (150-450) k/uL MPV Neutrophils % % Lymphocytes % % Monocytes % % Eosinophils % % Basophils % % Neutrophils # (1.3-7.7) k/uL Lymphocytes # (1.0-4.8) k/uL Monocytes # (0-1.0) k/uL Eosinophils # (0-0.7) k/uL Basophils # (0-0.2) k/uL PT (9.0-12.0) sec INR (<1.2) APTT (22.0-30.0) sec Sodium 140 (137-145) mmol/L Potassium 4.1 (3.5-5.1) mmol/L Chloride 102 (98-107) mmol/L Carbon Dioxide 29 (22-30) mmol/L Anion Gap 9 mmol/L BUN 20 H (7-17) mg/dL Creatinine 1.00 (0.52-1.04) mg/dL Est GFR (CKD-EPI)AfAm 72 (>60 ml/min/1.73 sqM) Est GFR (CKD-EPI)NonAf 63 (>60 ml/min/1.73 sqM) Glucose 104 H (74-99) mg/dL Plasma Lactic Acid Win 1.1 (0.7-2.0) mmol/L Calcium 9.9 (8.4-10.2) mg/dL Total Bilirubin 0.4 (0.2-1.3) mg/dL AST 25 (14-36) U/L ALT 19 (4-34) U/L Alkaline Phosphatase 60 (38-126) U/L Total Protein 7.3 (6.3-8.2) g/dL Albumin 4.5 (3.5-5.0) g/dL Amylase 58 (30-110) U/L Lipase 296 (23-300) U/L Urine Color Urine Appearance (Clear) Urine pH (5.0-8.0) Ur Specific [place] (1.001-1.035) Urine Protein (Negative) Urine Glucose (UA) (Negative) Urine Ketones (Negative) Urine Blood (Negative) Urine Nitrite (Negative) Urine Bilirubin (Negative) Urine Urobilinogen (<2.0) mg/dL Ur Leukocyte Esterase (Negative) Disposition Clinical Impression: Abdominal pain Disposition: HOME SELF-CARE Condition: Stable Instructions (If sedation given, give patient instructions): Abdominal Pain (ED) Additional Instructions: Please return to the Emergency Department if symptoms worsen or any other concerns. Prescriptions: bisacodyL [Dulcolax] 5 mg PO DAILY #15 tablet. Metoclopramide [Reglan] 10 mg PO TID #15 tab Is patient prescribed a controlled substance at d/c from ED?: No Referrals: Dwayne Tijerina DO [Primary Care Provider] - 1-2 days Hemant Cordon MD [STAFF PHYSICIAN] - 1-2 days Time of Disposition: 17:34
[2020-10-21 16:02] LABS: Basophils # (A) 0.1 k/uL (0-0.2); Basophils % (A) 1 %; Eosinophils # (A) 0.2 k/uL (0-0.7); Eosinophils % (A) 2 %; HCT 42.3 % (34.0-46.0); Lymphocytes # (A) 2.6 k/uL (1.0-4.8); Lymphocytes % (A) 33 %; MCH 30.2 pg (25.0-35.0); MCHC 33.2 g/dL (31.0-37.0); Mean Platelet Volume 7.9; Monocytes # (A) 0.6 k/uL (0-1.0); Monocytes % (A) 7 %; Neutrophils # (A) 4.4 k/uL (1.3-7.7); Neutrophils % (A) 56 %; Platelet Count 188 k/uL (150-450); RBC 4.64 m/uL (3.80-5.40); RDW 12.2 % (11.5-15.5); WBC 7.8 k/uL (3.8-10.6)
[2020-10-21 16:03] VITALS: RESP 18
[2020-10-21 16:07] LABS: Appearance,Urine Clear (Clear); Bilirubin,Urine Negative (Negative); Blood,Urine Negative (Negative); Color,Urine Yellow; Glucose,Urine (UA) Negative (Negative); Ketones,Urine Negative (Negative); Leukocyte Esterase,Urine Negative (Negative); Nitrite,Urine Negative (Negative); Protein,Urine Negative (Negative); Specific Gravity,Urine 1.013 (1.001-1.035); Urobilinogen,Urine <2.0 mg/dL (<2.0)
[2020-10-21] MEDS ORDERED: KETOROLAC 15 MG/ML 1 ML VIAL IVP STA (16:09)
[2020-10-21 16:11] LABS: INR 0.9 (<1.2); Prothrombin Time 10.1 sec (9.0-12.0)
[2020-10-21 16:12] LABS: Partial Thromboplastin Time 23.5 sec (22.0-30.0)
[2020-10-21 16:27] LABS: Albumin 4.5 g/dL (3.5-5.0); Calcium 9.9 mg/dL (8.4-10.2); Potassium 4.1 mmol/L (3.5-5.1); Total Bilirubin 0.4 mg/dL (0.2-1.3); Total Protein 7.3 g/dL (6.3-8.2)
--- NOTE | 2020-10-21 16:51 | CT ---
EXAMINATION TYPE: CT abdomen pelvis w con DATE OF EXAM: 10/21/2020 COMPARISON: 05/21/2020 HISTORY: generalized abdominal pain CT DLP: 603 mGycm Automated exposure control for dose reduction was used. CONTRAST: Performed with IV Contrast, patient injected with 100 mL of Isovue 300. Images obtained from the diaphragm to the floor the pelvis with IV contrast. Lung bases are clear. There is no pleural effusion. Liver spleen stomach pancreas appear normal. Bile ducts are nondilated. There are clips from cholecys tectomy. There is no adrenal mass. Kidneys show satisfactory contrast opacification. There is no hydronephrosi s. Delayed images show normal renal excretion. There is no retroperitoneal adenopathy. Bladder disten ds smoothly. There is no inguinal hernia. There is hysterectomy. There is no free fluid in the pelvis . There are surgical clips at the mid sigmoid colon. There are some sigmoid diverticula. There is no sign of diverticulitis. There is no ascites or free air. There is no bowel obstruction. There is no mesenteric edema. The jacob endix is posterior and appears normal. Lumbar vertebra have normal alignment. There is no compression fracture. Bony pelvis is intact. Hip j oints are intact. IMPRESSION: Surgery at the sigmoid colon with large clips. No evidence of diverticulitis. There is clearing of th e inflammatory changes of the sigmoid colon compared to old exam. There is sigmoid diverticulosis.
[2020-10-21 17:44] VITALS: BP 121/94; PULSE 76; TEMP 98.3
== END 2020-10-21 17:44 | disposition home or self-care (01) ==
LOC: EC 15:28
DX: R10.9 Unspecified abdominal pain (principal); E07.9 Disorder of thyroid, unspecified; K58.9 Irritable bowel syndrome, unspecified; K21.9 Gastro-esophageal reflux disease without esophagitis; Z79.899 Other long term (current) drug therapy; Z79.890 Hormone replacement therapy; Z90.49 Acquired absence of other specified parts of digestive tract; Z87.891 Personal history of nicotine dependence; Z87.19 Personal history of other diseases of the digestive system
CPT/HCPCS: 36415; 80053; 82150; 83605; 83690; 85025; 85610; 85730; 81003; 74177; 99284; 96374; 96361 ×2; J1885; Q9967

== ENCOUNTER 2021-11-23 12:04 | Day surgery (SDC) | payer OTHER ==
[2021-11-19 11:31] VITALS: BMI 20.1
[~2021-11-23 12:04] MED LIST changes: -ACETAMINOPHEN TAB 500 MG TAB PO ONE; -DEXAMETHASONE SOD PHOSPHATE 10 MG/ML 1 ML VIAL IV ONE; +LACTATED RINGERS 1,000 ML IV SCH; -MIDAZOLAM 2 MG/2 ML VIAL IV PRN; -ONDANSETRON 4 MG/2 ML VIAL IVP ONE; -ONDANSETRON 4 MG/2 ML VIAL ONE; -fentaNYL (PF) 50 MCG/ML 2 ML AMP IVP PRN; -metroNIDAZOLE-NS PMX 500 MG in SALINE 1 100ML.BAG IVPB ONE
[2021-11-23 12:41] VITALS: RESP 16; TEMP 97.2
[2021-11-23] MEDS ORDERED: PROPOFOL 10 MG/ML 20 ML VIAL IV ONE (14:13)
[2021-11-23] MEDS ORDERED: LIDOCAINE 1% INJ 10MG/ML (20 ML MDV) ONE (14:13)
--- NOTE | 2021-11-23 14:25 | P.GSHP ---
History of Present Illness H&P Date: 11/23/21 Chief Complaint: GI Bleed This a 61-year-old female who presents today for colonoscopy. She has issues with rectal bleeding. She's. History of diverticulitis with low anterior resection and sigmoid colectomy. Past Medical History Past Medical History: GERD/Reflux, Thyroid Disorder Additional Past Medical History / Comment(s): diverticulitis, hiatal hernia, IBS, colitis History of Any Multi-Drug Resistant Organisms: None Reported Past Surgical History: Bowel Resection, Cholecystectomy, Hysterectomy, Orthopedic Surgery, Tonsillectomy Additional Past Surgical History / Comment(s): andrae bunionectomy, hammertoe surgery rt foot, Past Anesthesia/Blood Transfusion Reactions: No Reported Reaction Smoking Status: Former smoker - Past Family History Mother History Unknown: Yes Family Medical History: No Reported History Additional Family Medical History / Comment(s): grandmother but not immediate family members Father Family Medical History: Cancer Medications and Allergies Home Medications Medication Instructions Recorded Confirmed Type Levothyroxine Sodium [Synthroid] 25 mcg PO DAILY 05/21/20 11/23/21 History Acetaminophen Tab [Tylenol Tab] 650 mg PO Q4H PRN #30 tablet 07/02/20 11/19/21 Rx Hyoscyamine Sulfate [Levsin] 0.125 mg PO DIRECTED PRN 11/19/21 11/19/21 History Allergies Allergy/AdvReac Type Severity Reaction Status Date / Time No Known Allergies Allergy Verified 11/23/21 12:37 Surgical - Exam Vital Signs Temp Pulse Resp BP Pulse Ox 97.2 F L 71 16 125/81 100 11/23/21 12:40 11/23/21 12:40 11/23/21 12:40 11/23/21 12:40 11/23/21 12:40 - General well developed, well nourished, no distress - Eyes PERRL - ENT normal pinna - Neck no masses - Respiratory normal expansion - Cardiovascular Rhythm: regular - Abdomen Abdomen: soft, non tender Assessment and Plan Assessment: History of GI bleed. We'll perform colonoscopy.
--- NOTE | 2021-11-23 14:40 | P.OP ---
Date of Procedure: 11/23/21 Preoperative Diagnosis: GI bleed Postoperative Diagnosis: Possible colorectal anastomotic stricture Barium enema pending Procedure(s) Performed: Colonoscopy Anesthesia: MAC Surgeon: Hemant Cordon Pathology: none sent Condition: stable Disposition: PACU Description of Procedure: Patient's placed on the endoscopy table in the lateral position. She received IV sedation. Digital rectal exam was performed. This revealed no abnormalities. The flexible colonoscope was then placed patient anus. The sc ope was placed into the rectum and then into the distal sigmoid colon. The anastomosis did not be cannulated with sigmoid with the colonoscope. This point the scope was withdrawn. The pediatric scope was placed patient's rectum. This too could not be passed and through the anastomosis. This point scope withdrawn. The patient was scheduled for a barium enema.
[2021-11-23 15:14] VITALS: BP 123/75; PULSE 75
== END 2021-11-23 15:35 | disposition home or self-care (01) ==
LOC: ORWHC2ENDO 12:04
PROVIDERS: ATTEND Surgery
DX: K92.2 Gastrointestinal hemorrhage, unspecified (principal); Z87.19 Personal history of other diseases of the digestive system; Z90.49 Acquired absence of other specified parts of digestive tract; K21.9 Gastro-esophageal reflux disease without esophagitis; E07.9 Disorder of thyroid, unspecified; K44.9 Diaphragmatic hernia without obstruction or gangrene; K58.9 Irritable bowel syndrome, unspecified; K52.9 Noninfective gastroenteritis and colitis, unspecified; Z90.710 Acquired absence of both cervix and uterus; Z98.890 Other specified postprocedural states; Z97.2 Presence of dental prosthetic device (complete) (partial); Z87.891 Personal history of nicotine dependence; Z80.9 Family history of malignant neoplasm, unspecified; Z79.890 Hormone replacement therapy
CPT/HCPCS: 45330; J2001; J2704

== ENCOUNTER → 2021-11-24 | Outpatient (CLI) | payer OTHER ==
--- NOTE | 2021-11-24 19:22 | FL ---
EXAMINATION TYPE: FL barium enema DATE OF EXAM: 11/24/2021 COMPARISON: CT dated 10/21/2020 HISTORY: Incomplete colonoscopy. History of diverticulitis, GI bleed and previous bowel resection. TECHNIQUE: A double contrast barium enema study is performed. A total of 3 minutes and 13 seconds o f fluoroscopic time was utilized during procedure and 41 images obtained. FINDINGS: Sap Basis Administrator view of the abdomen shows overall non-obstructive bowel gas pattern. Previous cholec ystectomy with surgical sutures in the pelvis. Bilateral pelvic phleboliths rather than urinary calcu li. Unremarkable colonic anastomosis in the pelvis as well as the adjacent colonic pouch. No evidence of any mass or stricture, obstructing or constricting lesion throughout the colon. Scattered colonic div erticulosis most evident involving the sigmoid colon. Reduced caliber of the sigmoid colon probably r elated to chronic diverticulosis. Multiple tiny millimetric filling defects are seen throughout the colon which could represent artifac ts or lymphoid hyperplasia however tiny polyps can't be excluded. No large polyp identified. Appendix was filled and appeared normal. IMPRESSION: Postsurgical changes and colonic diverticulosis as described above. No definite colonic mass, strictu re or large polyp. A small colonic polyp cannot be excluded by this barium enema. Further CT colonography can be considered if clinically required.
== END | disposition home or self-care (01) ==
LOC: RADFLMAIN 07:45
PROVIDERS: ATTEND Surgery
DX: K57.30 Diverticulosis of large intestine without perforation or abscess without bleeding (principal)
CPT/HCPCS: 74270

== ENCOUNTER → 2022-05-17 | Outpatient (CLI) | payer OTHER ==
--- NOTE | 2022-05-19 16:06 | MM ---
Reason for Exam: Screening (asymptomatic). Last mammogram was performed 4 year(s) and 1 month(s) ago. Patient History: Menarche at age 17. First Full-Term at age 23. Hysterectomy at age 42. Postmenopausal. Risk Values: May 5 year model risk: 1.1%. NCI Lifetime model risk: 6.2%. Prior Study Comparison: 12/14/2016 Bilateral MG screening mammo w CAD - 2, Unknown. 04/27/2018 Bilateral MG screening mammo w CAD - 2, Unknown. Tissue Density: The breast tissue is heterogeneously dense. This may lower the sensitivity of mammography. Findings: Analyzed By CAD. There is no suspicious group of microcalcifications or new suspicious mass in either breast. Overall Assessment: Negative, BI-RAD 1 Management: Screening Mammogram of both breasts in 1 year. A clinical breast exam by your physician is recommended on an annual basis and results should be correlated with mammographic findings. Electronically signed and approved by: Gustabo Barros DO
== END | disposition home or self-care (01) ==
LOC: RADMAMWWP 12:40
PROVIDERS: ATTEND Family Medicine
DX: Z12.31 Encounter for screening mammogram for malignant neoplasm of breast (principal); Z78.0 Asymptomatic menopausal state
CPT/HCPCS: 77063; 77067